=== PATIENT | female | born 1960 | race Two or more races ===

== ENCOUNTER → 2017-02-11 | Outpatient (REF) | payer MEDICARE ==
[~2017-02-11] MED LIST: BENI20TA11; Buspirone; Bystolic; Lovaza; PRAV40TA; Spiriva; ZETI10TA; ZOLO100T; vitamin
[2017-02-11 12:34] LABS: ALBUMIN 3.6 GM/DL (3.2-5.2); ALBUMIN/GLOBULIN RATIO 0.97 (1.00-1.93); ALKALINE PHOSPHATASE 57 U/L (45-117); ALT/SGPT 15 U/L (12-78); ANION GAP 6 MEQ/L (8-16); AST/SGOT 18 U/L (15-37); BILIRUBIN,TOTAL 0.3 MG/DL (0.2-1.0); BLOOD UREA NITROGEN 13 MG/DL (7-18); CALCIUM LEVEL 9.2 MG/DL (8.5-10.1); CARBON DIOXIDE LEVEL 31 MEQ/L (21-32); CHLORIDE LEVEL 103 MEQ/L (98-107); CHOLESTEROL LEVEL 180 MG/DL (<200); CREATININE FOR GFR 0.81 MG/DL (0.55-1.02); FREE T4 1.09 NG/DL (0.76-1.46); GLOMERULAR FILTRATION RATE > 60.0 (>51); GLUCOSE, FASTING 82 MG/DL (70-105); POTASSIUM SERUM 4.7 MEQ/L (3.5-5.1); SODIUM LEVEL 140 MEQ/L (136-145); TOTAL PROTEIN 7.3 GM/DL (6.4-8.2); TRIGLYCERIDES LEVEL 121 MG/DL (<150)
[2017-02-11 12:37] LABS: BASO % 0.3 % (0.0-1.0); EOS # 0.2 K/mm3 (0.0-0.50); EOS % 1.7 % (0.0-3.0); LARGE UNSTAINED CELL # 0.2 K/mm3 (0.0-0.4); LARGE UNSTAINED CELL % 1.7 % (0.0-4.0); LYMPH # 2.9 K/mm3 (1.5-4.5); LYMPH % 26.8 % (24.0-44.0); MEAN CORPUSCULAR HEMOGLOBIN 30.2 pg (27.0-33.0); MEAN CORPUSCULAR VOLUME 88.8 fl (80.0-96.0); MONO # 0.6 K/mm3 (0.0-0.8); MONO % 5.8 % (0.0-5.0); NEUTROPHILS % 63.6 % (36.0-66.0); PLATELET COUNT, AUTOMATED 290 k/mm3 (150-450); RED CELL DISTRIBUTION WIDTH 12.6 % (11.5-14.5); WHITE BLOOD COUNT 10.9 K/mm3 (4.0-10.0)
== END ==
LOC: M SFHCPLAZ 09:06
PROVIDERS: ATTEND Nurse Practitioner Family
DX: G89.4 Chronic pain syndrome (principal); I10 Essential (primary) hypertension; F33.1 Major depressive disorder, recurrent, moderate; Z11.59 Encounter for screening for other viral diseases; Z11.4 Encounter for screening for human immunodeficiency virus [HIV]; E55.9 Vitamin D deficiency, unspecified

== ENCOUNTER → 2017-03-10 | Outpatient (CLI) | payer MEDICAID, MEDICARE ==
--- NOTE | 2017-03-10 12:50 | REP ---
CT of the chest without IV contrast, low-dose lung screening CT: The studies performed without IV contrast. Images are presented at lung windowing only. There are no comparison studies. The following lung nodules are identified: Image 16, right upper lobe, 4 mm. Image 19, right upper lobe, 4 mm. Image 36, left upper lobe, 3 mm. Image 39, right lower lobe, 4 mm. Because of the multiplicity of findings and no prior studies, I would consider this a category 4A screening chest CT and I would recommend a 3-month follow-up low-dose chest screening CT. Signed by Shane Ambrocio MD 03/10/2017 12:41 P
== END ==
LOC: M RAD 11:24
PROVIDERS: ATTEND Nurse Practitioner Family
DX: F17.210 Nicotine dependence, cigarettes, uncomplicated (principal)

== ENCOUNTER → 2017-03-12 | Outpatient (CLI) | payer MEDICARE ==
--- NOTE | 2017-03-23 02:51 | ECWPNPC ---
PATIENT NAME: MYAH SHI : 1960 GENDER: FEMALE VISIT DATE: 03/12/2017 DISCHARGE DATE: 03/12/17 1114 VISIT LOCKED DATE TIME: PHYSICIAN: MARYJANE DUVALL RESOURCE: MARYJANE DUVALL REASON FOR APPOINTMENT 1. BACK AND KNEE PAIN HISTORY OF PRESENT ILLNESS FALL RISK SCREENING: SCREENING :NO FALLS IN THE PAST YEAR 56 YEAR OLD FEMALE PATIENT WITH HISTORY OF CHRONIC LOW BACK K AND KNEE PAIN. PATIENT DESCRIBES THE PAIN BURNING, SHARP, STABBING, AND THROBBING WITH A PAIN SCORE OF 5/10. PATIENT STATES HER PAIN STARTED WHEN SHE FELL ABOUT 5 YEARS AGO. PATIENT WAS RECEIVING PAIN MANAGEMENT CARE IN [place] BUT SHE RECENTLY MOVED TO [place]. MRS. SHI STATES THAT HER PAIN IS INCREASED BY ANY TYPE OF ACTIVITY, RAIN, AND WHEN THE WEATHER IS COLD. CURRENTLY THE PATIENT IS USING METHADONE, OXYCODONE, CELEBREX, AND LYRICA FOR PAIN MANAGEMENT. PATIENT DENIES UNEXPLAINABLE WEIGHT LOSS, FEVER, CHILLS, NEW CHANGES ON HER URINARY OR BOWEL CONTROL. PAIN SCREENING: PATIENT HAS A COMPLAINT OF ACUTE OR CHRONIC PAIN :YES CURRENT MEDICATIONS TAKING LYRICA 150 MG CAPSULE 1 CAPSULE ORALLY TWICE A DAY TAKING PAROXETINE HCL 10 MG TABLET 1 TABLET IN THE MORNING ORALLY ONCE A DAY TAKING VENTOLIN HFA 108 (90 BASE) MCG/ACT AEROSOL SOLUTION 2 PUFFS NEEDED INHALATION EVERY 4 HRS TAKING CELEBREX 200 MG CAPSULE 1 CAPSULE WITH FOOD ORALLY ONCE A DAY TAKING METHADONE HCL 10 MG TABLET 1 TABLET ORALLY TWICE DAILY TAKING OXYCODONE HCL 15 MG TABLET 1 TABLET NEEDED ORALLY THREE TIMES DAILY NEEDED TAKING MULTIVITAL DAILY/OCC TAKING VITAMIN D (ERGOCALCIFEROL) 56033 UNIT CAPSULE 1 CAPSULE ORALLY WEEKLY TAKING BYSTOLIC 10 MG TABLET 1 TABLET ORALLY ONCE A DAY TAKING CHANTIX STARTING MONTH JON 0.5 MG X 11 & 1 MG X 42 TABLET DIRECTED ORALLY DAILY, NOTES: NONE YET TAKING SPIRIVA HANDIHALER 18 MCG CAPSULE 1 CAPSULE INHALATION ONCE A DAY TAKING PREDNISONE 10 MG TABLET 1 TABLET ORALLY ONCE A DAY, NOTES: X 6 DAYS TAKING PAXIL 10 MG TABLET 1 TABLET IN THE MORNING ORALLY ONCE A DAY NOT-TAKING BACTRIM DS 800-160 MG TABLET 1 TABLET ORALLY BID MEDICATION LIST REVIEWED AND RECONCILED WITH THE PATIENT PAST MEDICAL HISTORY CHRONIC PAIN SYNDROME DESPRESSION HTN LS SPINE WITH BULGING DISC DISEASE ASCVD RISK SCORE 11% COPD ALLERGIES N.K.D.A. SURGICAL HISTORY TUBAL LIGATION 2000 COLONOSCOPY 2014 FAMILY HISTORY FATHER: , ALCOHOLIC CIRRHOSIS MOTHER: ALIVE 91 YRS, HTN, HYPERLIPIDEMIA, DIAGNOSED WITH HYPERTENSION SIBLINGS: MOST SIBS WITH HTN 5 BROTHER(S) , 6 SISTER(S) . 3 SON(S) , 3 DAUGHTER(S) - HEALTHY. FATHER OF CIRRHOSIS OF LIVER FROM ETOH. SOCIAL HISTORY GENERAL: TOBACCO USE ARE YOU A:CURRENT SMOKER ARE YOU INTERESTED IN QUITTING?THINKING ABOUT QUITTING PREVIOUS QUIT ATTEMPTS?YES, MORE THAN 6 MONTHS AGO. COUNSELED THE PATIENT ON SMOKING CESSATION, EDUCATION HSDTOSLD49/13/2017 HOW MANY CIGARETTES A DAY DO YOU SMOKE?11-20 HOW SOON AFTER YOU WAKE UP DO YOU SMOKE YOUR FIRST CIGARETTE?WITHIN 5 MIN HOW OFTEN DO YOU SMOKE CIGARETTES?EVERY DAY PATIENT COUNSELED ON THE DANGERS OF TOBACCO USE AND URGED TO QUIT:03/12/2017 LUNG CANCER SCREENING SMOKING STATUS:CURRENT SMOKER IS THE PATIENT BETWEEN THE AGE OF 56 AND 78?YES HAS THE PATIENT EVER BEEN DIAGNOSED WITH LUNG CANCER?NO PACK YEARS = NUMBER OF PACKS PER DAY SMOKED X NUMBER OF YEARS SMOKED:40 CREATE REFERRAL:GENERATE AND CREATE REFERRAL TO THE ONCOLOGY NURSE NAVIGATOR (S[facility]) LISTING USING THE LDCT SCAN PROCEDURE ALCOHOL SCREENING POINTS0 INTERPRETATIONNEGATIVE RECREATIONAL DRUG USE DRUG USE?NO CAFFEINE CAFFEINE USE?YES 2-3 CUPS COFFEE DAILY, DRINKS ICED TEA ALL DAY LONG SEXUAL HX HAD SEX IN THE LAST 12 MONTHS (VAGINAL, ORAL, OR ANAL)?YES WITHMEN ONLY USE PROTECTION?NO PREVENTION STRATEGIES DISCUSSED:OTHER HAVE YOU EVER HAD AN STD?YES CHLAMYDIA?YES GC?YES SYPHILIS?YES HERPES?NO OTHER?NO HIV / HEP-C SCREENING HIV TEST OFFERED TO PATIENT:YES DATE OFFERED:01/19/2017 TEST ACCEPTED:YES HEP-C TEST OFFERED TO PATIENT:YES DATE OFFERED:01/19/2017 TEST ACCEPTED:YES OCCUPATION: DISABLED. DIET: REGULAR. EXERCISE: NO REGULAR EXERCISE. MARITAL STATUS: ., CURRENTLY ENGAGED. OTHERS AT HOME: [place]. PETS: 1 CAT. ORIENTAL ORTHODOX [id number] CATHOLIC LANGUAGE LANGUAGES SPOKEN:TUNISIAN EDUCATION LEVEL OF EDUCATION:[employer] FINISHED 7TH GRADE LEARNING BARRIERS / SPECIAL NEEDS CHANGE FROM LAST VISIT?NO BARRIERS TO LEARNING?NO HEARING IMPAIRED?NO VISION IMPAIRED?YES :CORRECTIVE LENSES COGNITIVELY IMPAIRED?NO READINESS TO LEARN?YES LEARNING PREFERENCES?NO LEARNING CAPABILITIES PRESENT?YES EMOTIONAL BARRIERS?NO SPECIAL DEVICES?NO CHAIR INSTALLER NEEDED?NO PAIN CLINIC PFS, CLERGY, PUBLIC HEALTH REFERRALS HAS THE PATIENT BEEN EDUCATED REGARDING HIS/HER PLAN OF CARE?YES HAS THE PATIENT BEEN EDUCATED REGARDING PAIN, THE RISK FOR PAIN, THE IMPORTANCE OF EFFECTIVE PAIN MANAGEMENT, AND THE PAIN ASSESSMENT PROCESS?YES ADVANCE DIRECTIVES HEALTH CARE PROXY?NO DO YOU HAVE A DNR?NO LIVING WILL?NO POWER OF CIRCUS HAND?NO HOSPITALIZATION/MAJOR DIAGNOSTIC PROCEDURE CHILDBIRTH ONLY REVIEW OF SYSTEMS REVIEWED BY: PROVIDER: MARYJANE DUVALL MD . CONSTITUTIONAL: ANY CHANGE IN YOUR MEDICAL CONDITION? NO, PT REFERRED TO PAIN CLINIC FOR BILAT KNEE PAIN AND LOW BACK PAIN. PT STATES THIS PAIN STARTED YEARS AGO FROM A FALL WHILE WALKING. PT STATES SHE WAS READING WHILE WALKING AND TRIPPED AND FELL OVER A CURB. SINCE THEN THE PAIN HAS GOTTEN WORSE OVER THE YEARS. PT STATES SHE GOES TO PT, WHICH MAKES THE PAIN WORSE WITH SWOLLEN KNEE PAIN . CHILLS NO . FEVER NO . INFECTION: DO YOU HAVE NEW INFECTIONS? YES, PT C/O URI, PT DENIES ANY TX WITH ABX, PT SUSPECTS A COLD . DO YOU HAVE HISTORY OF MRSA? NO . MUSCULOSKELETAL: ANY NEW PATTERNS OF PAIN OR NUMBNESS? NO . SYTEMIC LUPUS NO . GASTROENTEROLOGY: ANY NEW CHANGE IN BOWEL CONTROL? NO . BARRETTS ESOPHAGUS NO . CIRRHOSIS NO . HEPATITIS NO . LIVER FAILURE NO . ACID REFLUX NO . UNEXPLAINED WEIGHT LOSS NO . GENITOURINARY: ANY NEW CHANGE IN BLADDER CONTROL? NO . IS THERE A CHANCE YOU COULD BE ? NO . HEMATOLOGY/LYMPH: DO YOU TAKE ANY BLOOD THINNERS? (FOR EXAMPLE- COUMADIN, PLAVIX, AGGRENOX, PLATEL, PRADAXA, OR XARELTO) NO . WHEN WAS YOUR LAST DOSE? DATE: TIME: . LOW PLATELET COUNT NO . SICKLE CELL DISEASE NO . VON WILLIEBRANDS NO . FACTOR V LEIDEN NO . THALLASEMIA NO . ANEMIA NO . EASY BRUISING NO . NEUROLOGY: HAVE YOU FALLEN IN THE PAST 6 MONTHS? NO . ANY NEW EXTREMITY NUMBNESS OR WEAKNESS? NO . HEAD INJURY NO . DEMENTIA NO . CEREBRAL PALSY NO . MULTIPLE SCLEROSIS NO . DIZZINESS NO . HEADACHE NO . STROKES NO . VERTIGO NO . CARDIOLOGY: DO YOU HAVE A PACEMAKER OR DEFIBRILLATOR? NO . ANGINA NO . HEART ATTACK NO . HEART SURGERY NO . CONGESTIVE HEART FAILURE/FLUID OVERLOAD NO . CHEST PAIN NO . HIGH BLOOD PRESSURE ON MEDICATION(S) . IRREGULAR HEART BEAT NO . RESPIRATORY: HAVE YOU BEEN SICK IN THE PAST WEEK? YES, URI . FEVER NO . FLU LIKE SYMPTOMS? NO . CPAP NO . BYPAP NO . ASTHMA NO . EMPHYSEMA NO . CHRONIC LUNG DISEASES YES, COPD, PT DENIES WEARING MASK AT HS . SHORTNESS OF BREATH ON EXERTION NO . COUGH NO . SNORING NO . INTEGUMENTARY: DO YOU HAVE ANY RASHES OR OPEN SORES? NO . ALLERGIC/IMMUNO: ARE YOU ALLERGIC TO SHELLFISH OR IV DYE? NO . ANY NEW ALLERGIES? NO . PSYCHIATRIC: DO YOU HAVE THOUGHTS OF HURTING YOURSELF OR SOMEONE ELSE? NO . ARE YOU ABUSED, NEGLECTED, OR IN AN UNSAFE ENVIRONMENT? NO . ENDOCRINOLOGY: ARE YOU DIABETIC? NO . THYROID DISORDER NO . OTHER: DO YOU NEED ANY PRESCRIPTIONS? YES, OXYCODONE, METHADONE, LYRICA . IF YES, PLEASE LIST: ____ . ANY NEW PROBLEMS WITH YOUR MEDICATIONS? NO . WHEN DID YOU LAST EAT? ____ . WHEN DID YOU LAST DRINK? ____ . WHAT DID YOU LAST DRINK? ____ . NAME OF PERSON DRIVING YOU HOME? ____ . DO YOU HAVE ANY OTHER QUESTIONS OR CONCERNS NO, PT STATES [facility] PNEUMONIA VACC[facility] 01/2017, SHINGLES VACCINE 01/2017 . VITAL SIGNS WT 135 LBS, HT 62.5 IN, BMI 24.30 INDEX, BP 147/71 MM HG, HR 75 /MIN, RR 18 /MIN, TEMP 97.6 F, OXYGEN SAT % 93%, NA INITIALS AW 0952, REVIEWED BY: EM. EXAMINATION : PATIENT IS ALERT O X 3 AND COOPERATIVE. TENDERNESS IN THE LOWER BACK AND PARASPINAL MUSCLE GROUP. LEFT LEG IS WEAKER THEN THE RIGHT AT EXTENSION AND FLEXION. TENDERNESS IN BOTH KNEES. ASSESSMENTS MYALGIA - M79.1 (PRIMARY) TREATMENT MYALGIA NOTES: WE DISCUSSED SEVERAL ISSUES WITH MRS. SHI'S PAIN MANAGEMENT CASE. AT THIS TIME I WOULD LIKE TO SPEAK WITH THE PATIENT'S PRIMARY CARE PHYSICIAN ABOUT MEDICATION MANAGEMENT. PATIENT WILL BE REFERRED TO [facility] FOR THE KNEE PAIN WELL A MARINE ENGINEER [facility]. I WOULD LIKE TO GET ALL THE STUDIES SUCH MRI'S THAT SHE HAS HAD IN [place] TO CONSIDER INTERVENTIONS. PATIENT WILL RETURN TO THE CLINIC IN 3 WEEKS. INSTRUCTIONS WERE GIVEN, QUESTIONS WERE ANSWERED, PATIENT REPORTS UNDERSTANDING AND AGREES WITH THE PLAN. I, PURVI PANTOJA, DOCUMENTED THE ABOVE INFORMATION ACTING A SCRIBE FOR DR. DUVALL. I HAVE REVIEWED THE ABOVE DOCUMENT, WRITTEN BY PURVI RAZO AND I VERIFY THAT IT IS ACCURATE. DEAR DR. IBARRA:THANK YOU FOR YOUR KIND REFERRAL OF MRS. SHI. IF YOU WANT TO DISCUSS HER CASE WITH ME PLEASE CALL ME AT THE PAIN CENTER AT [phone]. SINCERELY,MARYJANE DUVALL, [facility]. PROCEDURE CODES FA211 ESTABILISHED PATIENT [facility] FACILITY CHARGE G8427 DOC MEDS VERIFIED W/PT OR RE G8730 PAIN ASSESS POS TOOL F/U PLAN DOC DISPOSITION & COMMUNICATION FOLLOW UP 3 WEEKS ELECTRONICALLY SIGNED BY MARYJANE DUVALL MD ON 03/22/2017 AT 10:52 AM EDT DISCLAIMER : THIS IS A VISIT SUMMARY EXTRACTED FROM THE [employer] CHART. IT IS NOT A COPY OF THE [employer] PROGRESS NOTE. BRUNO
== END ==
LOC: M PAIN 09:30
PROVIDERS: ATTEND Anesthesiology
DX: G89.29 Other chronic pain (principal); M54.5 Low back pain; M25.561 Pain in right knee; M25.562 Pain in left knee; M79.1 Myalgia; F32.9 Major depressive disorder, single episode, unspecified; I10 Essential (primary) hypertension; J44.9 Chronic obstructive pulmonary disease, unspecified; F17.210 Nicotine dependence, cigarettes, uncomplicated; F11.20 Opioid dependence, uncomplicated; Z79.52 Long term (current) use of systemic steroids; Z79.899 Other long term (current) drug therapy

== ENCOUNTER → 2017-04-28 | Outpatient (CLI) | payer MEDICARE, MEDICAID ==
--- NOTE | 2017-04-29 09:20 | REP ---
MR LUMBAR SPINE WITHOUT CONTRAST: HISTORY: Back pain. Decreased signal intensity on T2-weighted images is present in the L4-5 and L5-S1 intervertebral discs. The L3-4 through L5-S1 intervertebral discs are decreased in height. These findings are consistent with disc degeneration. There is no disc bulge or herniation at the L1-2 and L2-3 levels. The nerves exit the neural foramina without compression. A diffuse disc bulge is present at the L3-4 level. There is minimal compression of the thecal sac. There is hypertrophy of the ligamenta flava and posterior articulating facets. The L3 nerves exit the neural foramina without compression. A diffuse disc bulge is present at the L4-5 level. There is minimal compression of the thecal sac. There hypertrophy of the ligamenta flava and posterior articulating facets. There are 4 mm of grade 1 spondylolisthesis of L4 on 5. The L4 nerves exit the neural foramina without compression. A diffuse disc bulge is present at the L5-S1 level. This abuts the thecal sac and S1 nerves. There is hypertrophy of the posterior articulating facets. The L5 nerves exit the neural foramina without compression. The conus medullaris is normal in appearance terminating at the level of the L1-2 intervertebral disc. Normal signal intensity is present in the lumbar vertebral bodies. IMPRESSION: 1. Diffuse disc bulge at the L3-4 level with minimal thecal sac compression. 2. Diffuse disc bulge at the L4-5 level with minimal thecal sac compression. There is grade 1 spondylolisthesis of L4 on 5. 3. Diffuse disc bulge at the L5-S1 level. This abuts the thecal sac and S1 nerves. Signed by Kevin Mary MD 04/29/2017 08:38 A
== END ==
LOC: M RAD 14:54
PROVIDERS: ATTEND Physician Assistant Medical
DX: M54.5 Low back pain (principal)

== ENCOUNTER → 2021-12-19 | Outpatient (CLI) | payer MEDICARE, MEDICAID ==
[2021-12-19 09:39] LABS: HEMATOCRIT 46.3 % (36.0-47.0); HEMOGLOBIN 15.3 g/dl (12.0-15.5); MEAN CORPUSCULAR VOLUME 87.7 fl (80.0-96.0); PLATELET COUNT, AUTOMATED 250 10^3/uL (150-450); RED BLOOD COUNT 5.28 10^6/uL (4.00-5.40); WHITE BLOOD COUNT 10.8 10^3/uL (4.0-10.0)
[2021-12-19 11:20] LABS: ALBUMIN 3.7 GM/DL (3.2-5.2); ALT/SGPT 24 U/L (12-78); BILIRUBIN,TOTAL 0.3 MG/DL (0.2-1.0); BLOOD UREA NITROGEN 16 MG/DL (7-18); CALCIUM LEVEL 9.4 MG/DL (8.8-10.2); CARBON DIOXIDE LEVEL 30 MEQ/L (21-32); CHLORIDE LEVEL 105 MEQ/L (98-107); CREATININE FOR GFR 0.93 MG/DL (0.55-1.30); GLOMERULAR FILTRATION RATE > 60.0 (>45); GLUCOSE, FASTING 79 MG/DL (70-100); POTASSIUM SERUM 4.5 MEQ/L (3.5-5.1); SODIUM LEVEL 139 MEQ/L (136-145)
[2021-12-19 13:08] LABS: HEPATITIS B SURFACE ANTIBODY NEGATIVE (POSITIVE)
[2021-12-19 13:40] LABS: GC DNA AMPLIFICATION NEGATIVE (NEGATIVE)
[2021-12-19 13:42] LABS: HEPATITIS C VIRUS ABY INDEX < 0.0 INDEX (<0.8); HIV 1&2 SCREEN CENTAUR NEGATIVE (NEGATIVE)
[2021-12-19 13:55] LABS: HCG, SERUM QUALITATIVE NEGATIVE (NEGATIVE)
== END ==
LOC: M LAB 08:28
PROVIDERS: ATTEND Family Medicine
DX: F11.20 Opioid dependence, uncomplicated (principal)

== ENCOUNTER → 2022-01-18 | Outpatient (CLI) | payer MEDICARE | LOC: M RAD 12:17 | PROVIDERS: ATTEND Student in an Organized Health Care Education/Training Program | DX: J44.1 Chronic obstructive pulmonary disease with (acute) exacerbation (principal) ==

== ENCOUNTER → 2022-11-24 | Outpatient (CLI) | payer MEDICARE | LOC: M WUC 12:12 | PROVIDERS: ATTEND Physician Assistant | DX: R05.9 Cough, unspecified (principal); J44.1 Chronic obstructive pulmonary disease with (acute) exacerbation; Z72.0 Tobacco use; I70.0 Atherosclerosis of aorta; M48.14 Ankylosing hyperostosis [Forestier], thoracic region ==

== ENCOUNTER 2023-01-29 08:05 | Inpatient (IN) | payer MEDICARE ==
[~2023-01-29] VITALS: Ht 160 cm; Wt 66.9 kg
[~2023-01-29 08:05] MED LIST changes: +ALBU2.5V10 NEB; +NEBU1EAC78 MC; +PRED20TA PO
[2023-01-29] MEDS ORDERED: methylPREDNISolone 125MG 2ML VIAL IV ONE (08:30)
[2023-01-29] MEDS ORDERED: IPRATROPIUM 0.5MG/ALBUTEROL 2.5MG INH SOL UD 3ML (DUONEB) NEB PRN (08:30)
[2023-01-29 09:20] LABS: BASO % 0.1 % (0.0-1.0); EOS % 0.1 % (0.0-3.0); HEMATOCRIT 47.2 % (36.0-47.0); HEMOGLOBIN 15.9 g/dl (12.0-15.5); LYMPH % 8.2 % (24.0-44.0); MEAN CORPUSCULAR HEMOGLOBIN 29.9 pg (27.0-33.0); MEAN CORPUSCULAR HGB CONC 33.7 g/dl (32.0-36.5); MEAN CORPUSCULAR VOLUME 88.7 fl (80.0-96.0); MONO # 0.6 10^3/uL (0.0-0.8); MONO % 4.5 % (2.0-8.0); NEUTROPHILS # 10.6 10^3/uL (1.5-8.5); NEUTROPHILS % 86.6 % (36.0-66.0); PLATELET COUNT, AUTOMATED 356 10^3/uL (150-450); RED BLOOD COUNT 5.32 10^6/uL (4.00-5.40); WHITE BLOOD COUNT 12.3 10^3/uL (4.0-10.0)
[2023-01-29 09:37] LABS: INR 1.03; PROTHROMBIN TIME 13.2 SECONDS (12.5-14.5)
[2023-01-29] MEDS ORDERED: ISOVUE-370 76% 100ML VIAL As Ordered ONE (09:52)
[2023-01-29 10:30] LABS: VENOUS BASE EXCESS 0.2 (-2.0-2.0); VENOUS HCO3 25.7 MMOL/L (23.0-27.0); VENOUS O2 SATURATION 91.9 % (60.0-80.0); VENOUS PARTIAL PRESSURE CO2 44.8 mmHg (38.0-50.0); VENOUS PARTIAL PRESSURE O2 61.6 mmHg (30.0-50.0); VENOUS PH 7.377 UNITS (7.330-7.430); VENOUS STANDARD HCO3 24.5 MMOL/L; VENOUS TOTAL CO2 27.1 MMOL/L (24.0-28.0)
[2023-01-29 11:05] LABS: CPK CREATINE PHOSPHOKINASE 46 U/L (34-145)
[2023-01-29 11:16] LABS: ALBUMIN 3.5 G/DL (3.2-5.2); ALKALINE PHOSPHATASE 52 U/L (46-116); ALT/SGPT 21 U/L (7.0-40); AST/SGOT 23 U/L (<34); BILIRUBIN,DIRECT 0.2 MG/DL (<0.4); BILIRUBIN,TOTAL 0.4 MG/DL (0.3-1.2); BLOOD UREA NITROGEN 22 MG/DL (9-23); CALCIUM LEVEL 9.3 MG/DL (8.3-10.6); CARBON DIOXIDE LEVEL 27 MMOL/L (20-31); CHLORIDE LEVEL 108 MMOL/L (98-107); CK-MB VALUE MASS 1.9 NG/ML (<3.6); CREATININE FOR GFR 0.81 MG/DL (0.55-1.30); GLOMERULAR FILTRATION RATE > 60.0 (>45); GLUCOSE, FASTING 109 MG/DL (74-106); MB/CK RELATIVE INDEX 4.13 (< OR =4); SODIUM LEVEL 142 MMOL/L (136-145); THYROID STIMULATING HORMONE 1.748 uIU/ML (0.55-4.78); THYROXINE (T4) 10.6 UG/DL (4.5-10.9); TOTAL PROTEIN 6.6 G/DL (5.7-8.2)
[2023-01-29] MEDS ORDERED: MED REC IN PROGRESS XX SCH (11:35)
[2023-01-29] MEDS ORDERED: NEBI20TA2 PO (12:51)
[2023-01-29] MEDS ORDERED: ANOR1AER INH (12:51)
[2023-01-29] MEDS ORDERED: CITA10TA7 PO (12:51)
[2023-01-29] MEDS ORDERED: IPRA0.00 INH (12:51)
[2023-01-29] MEDS ORDERED: ROFL500T PO (12:51)
[2023-01-29] MEDS ORDERED: IBUP80TA PO (12:51)
[2023-01-29] MEDS ORDERED: EZET10TA21 PO (12:51)
[2023-01-29] MEDS ORDERED: TREL1AER INH (12:51)
[2023-01-29] MEDS ORDERED: METH5TA PO (12:51)
[2023-01-29] MEDS ORDERED: PREG150C2 PO (12:51)
[2023-01-29] MEDS ORDERED: ALBU8.5H INH (12:51)
[2023-01-29] MEDS ORDERED: ALBU2.5V10 INH (12:51)
[2023-01-29] MEDS ORDERED: HOME MED LIST COMPLETE! XX SCH (12:55)
[2023-01-29 13:27] LABS: CPK CREATINE PHOSPHOKINASE 50 U/L (34-145)
[2023-01-29] MEDS ORDERED: GABAPENTIN 300 MG CAP PO ONE (13:30)
[2023-01-29] MEDS: ENOXAPARIN 40MG/0.4ML SYRINGE (J1650 PER 10MG) SC SCH (14:50)
[2023-01-29 14:54] LABS: PROCALCITONIN <0.04 ng/ml
[2023-01-29] MEDS ORDERED: AZITHROMYCIN INJ 500 MG, VIAL MATE ADAPTER 1 EACH in NS 250 ML IV SCH (14:55)
[2023-01-29] MEDS ORDERED: LEVALBUTEROL 1.25MG 0.5ML CONCENTRATE NEB INH PRN ×2 (14:55→15:05)
[2023-01-29] MEDS ORDERED: IPRATROPIUM 0.02% SOLN 0.5MG 2.5ML NEB INH PRN (14:55)
[2023-01-29] MEDS ORDERED: **hydrALAZINE HCL** 25 MG TAB PO PRN (15:00)
[2023-01-29] MEDS: IPRATROPIUM 0.02% SOLN 0.5MG 2.5ML NEB INH SCH ×3 (16:41→23:46)
[2023-01-29] MEDS: LEVALBUTEROL 1.25MG 0.5ML CONCENTRATE NEB INH SCH ×3 (16:42→23:46)
[2023-01-29] MEDS: NEBIVOLOL 5 MG TAB (BYSTOLIC) PO SCH (17:30)
[2023-01-29] MEDS: CitaloPRAM (CeleXA) 10 MG TABLET PO SCH (17:30)
[2023-01-29] MEDS: EZETIMIBE 10MG TABLET (ZETIA) PO SCH (17:31)
[2023-01-29] MEDS: LOSARTAN 25 MG TAB PO SCH (17:31)
[2023-01-29] MEDS: NICOTINE 14 MG/24 HR TRANSDERMAL TD SCH (17:32)
[2023-01-29] MEDS: AZITHROMYCIN 250MG TABLET PO SCH (18:06)
[2023-01-29 20:47] VITALS: BP 161/81; TEMP 98.3; O2SAT 95
[2023-01-29] MEDS ORDERED: predniSONE 20 MG TAB PO SCH (21:00)
[2023-01-29] MEDS: SYMBICORT 160/4.5MCG INHALER 6GM INH SCH (21:00)
[2023-01-29] MEDS: CAPSAICIN 0.025% CR 60 GM TOP SCH (21:00)
[2023-01-29] MEDS: methylPREDNISolone 40MG 1ML VIAL IV SCH (21:32)
[2023-01-29] MEDS: PREGABALIN 75 MG CAP(LYRICA) PO SCH (21:33)
[2023-01-30] VITALS (24 sets, daily range): BP systolic 135–148; BP diastolic 62–72; TEMP 96.9–98.3; O2SAT 88–99
[2023-01-30] MEDS: LEVALBUTEROL 1.25MG 0.5ML CONCENTRATE NEB INH SCH ×6 (03:10→23:46)
[2023-01-30] MEDS: IPRATROPIUM 0.02% SOLN 0.5MG 2.5ML NEB INH SCH ×6 (03:10→23:46)
[2023-01-30 06:11] LABS: HEMATOCRIT 46.8 % (36.0-47.0); HEMOGLOBIN 15.3 g/dl (12.0-15.5); MEAN CORPUSCULAR HEMOGLOBIN 29.3 pg (27.0-33.0); MEAN CORPUSCULAR HGB CONC 32.7 g/dl (32.0-36.5); MEAN CORPUSCULAR VOLUME 89.7 fl (80.0-96.0); PLATELET COUNT, AUTOMATED 386 10^3/uL (150-450); RED BLOOD COUNT 5.22 10^6/uL (4.00-5.40); WHITE BLOOD COUNT 15.1 10^3/uL (4.0-10.0)
[2023-01-30 06:42] LABS: BLOOD UREA NITROGEN 25 MG/DL (9-23); CALCIUM LEVEL 9.8 MG/DL (8.3-10.6); CARBON DIOXIDE LEVEL 27 MMOL/L (20-31); CHLORIDE LEVEL 105 MMOL/L (98-107); CREATININE FOR GFR 0.89 MG/DL (0.55-1.30); GLOMERULAR FILTRATION RATE > 60.0 (>45); GLUCOSE, FASTING 118 MG/DL (74-106); SODIUM LEVEL 143 MMOL/L (136-145)
[2023-01-30] MEDS: TIOTROPIUM INHALER/CAPSULE (SPIRIVA) INH SCH (07:13)
[2023-01-30] MEDS: SYMBICORT 160/4.5MCG INHALER 6GM INH SCH ×2 (07:13→19:09)
[2023-01-30] MEDS ORDERED: ROFLUMILAST 500 MCG TABLET (PATIENT'S OWN MED) PO SCH (09:00)
[2023-01-30] MEDS: ENOXAPARIN 40MG/0.4ML SYRINGE (J1650 PER 10MG) SC SCH (09:00)
[2023-01-30] MEDS: NICOTINE 14 MG/24 HR TRANSDERMAL TD SCH (09:00)
[2023-01-30] MEDS: CAPSAICIN 0.025% CR 60 GM TOP SCH ×2 (09:34→20:05)
[2023-01-30] MEDS: methylPREDNISolone 40MG 1ML VIAL IV SCH ×2 (09:34→20:05)
[2023-01-30] MEDS: NEBIVOLOL 5 MG TAB (BYSTOLIC) PO SCH (09:35)
[2023-01-30] MEDS: METHADONE 10MG TAB PO SCH (09:35)
[2023-01-30] MEDS: LOSARTAN 25 MG TAB PO SCH (09:35)
[2023-01-30] MEDS: EZETIMIBE 10MG TABLET (ZETIA) PO SCH (09:35)
[2023-01-30] MEDS: PREGABALIN 75 MG CAP(LYRICA) PO SCH ×2 (09:36→20:05)
[2023-01-30] MEDS: CitaloPRAM (CeleXA) 10 MG TABLET PO SCH (09:36)
[2023-01-30] MEDS: AZITHROMYCIN 250MG TABLET PO SCH (17:23)
[2023-01-30] MEDS ORDERED: ALPRAZolam 0.25 MG TAB PO ONE (22:05)
[2023-01-31] VITALS (13 sets, daily range): BP systolic 127–142; BP diastolic 58–66; TEMP 97–98.3; O2SAT 90–100
[2023-01-31] MEDS: UNRESOLVED PATIENT OWN MED ORDER XX SCH (00:01)
[2023-01-31] MEDS: LEVALBUTEROL 1.25MG 0.5ML CONCENTRATE NEB INH SCH ×2 (03:04→06:56)
[2023-01-31] MEDS: IPRATROPIUM 0.02% SOLN 0.5MG 2.5ML NEB INH SCH ×2 (03:04→06:56)
[2023-01-31] MEDS: TIOTROPIUM INHALER/CAPSULE (SPIRIVA) INH SCH (06:55)
[2023-01-31] MEDS: SYMBICORT 160/4.5MCG INHALER 6GM INH SCH (06:56)
[2023-01-31 07:06] LABS: BASO % 0.1 % (0.0-1.0); HEMATOCRIT 45.5 % (36.0-47.0); HEMOGLOBIN 14.9 g/dl (12.0-15.5); LYMPH # 1.8 10^3/uL (1.5-5.0); LYMPH % 16.9 % (24.0-44.0); MEAN CORPUSCULAR HEMOGLOBIN 30.3 pg (27.0-33.0); MEAN CORPUSCULAR HGB CONC 32.7 g/dl (32.0-36.5); MEAN CORPUSCULAR VOLUME 92.5 fl (80.0-96.0); MONO # 0.8 10^3/uL (0.0-0.8); MONO % 7.5 % (2.0-8.0); NEUTROPHILS # 8.1 10^3/uL (1.5-8.5); NEUTROPHILS % 74.7 % (36.0-66.0); PLATELET COUNT, AUTOMATED 309 10^3/uL (150-450); RED BLOOD COUNT 4.92 10^6/uL (4.00-5.40); WHITE BLOOD COUNT 10.8 10^3/uL (4.0-10.0)
[2023-01-31 07:21] LABS: BLOOD UREA NITROGEN 23 MG/DL (9-23); CALCIUM LEVEL 9.6 MG/DL (8.3-10.6); CARBON DIOXIDE LEVEL 30 MMOL/L (20-31); CHLORIDE LEVEL 105 MMOL/L (98-107); CREATININE FOR GFR 0.89 MG/DL (0.55-1.30); GLOMERULAR FILTRATION RATE > 60.0 (>45); GLUCOSE, FASTING 115 MG/DL (74-106); POTASSIUM SERUM 4.7 MMOL/L (3.5-5.1); SODIUM LEVEL 141 MMOL/L (136-145)
[2023-01-31] MEDS: FORMOTEROL FUMARATE 20 MCG/2 ML INHALATION SOLUTION (PERFOROMIST) INH SCH ×2 (08:00→19:22)
[2023-01-31] MEDS: BUDESONIDE 0.5 MG/2 ML INHALATION SUSPENSION INH SCH ×2 (08:00→19:22)
[2023-01-31] MEDS ORDERED: IPRATROPIUM 0.5MG/ALBUTEROL 2.5MG INH SOL UD 3ML (DUONEB) NEB PRN (08:10)
[2023-01-31] MEDS: NICOTINE 14 MG/24 HR TRANSDERMAL TD SCH (09:00)
[2023-01-31] MEDS: ENOXAPARIN 40MG/0.4ML SYRINGE (J1650 PER 10MG) SC SCH (09:00)
[2023-01-31] MEDS: NEBIVOLOL 5 MG TAB (BYSTOLIC) PO SCH (09:20)
[2023-01-31] MEDS: EZETIMIBE 10MG TABLET (ZETIA) PO SCH (09:21)
[2023-01-31] MEDS: PREGABALIN 75 MG CAP(LYRICA) PO SCH ×2 (09:21→20:15)
[2023-01-31] MEDS: CitaloPRAM (CeleXA) 10 MG TABLET PO SCH (09:21)
[2023-01-31] MEDS: LOSARTAN 25 MG TAB PO SCH (09:22)
[2023-01-31] MEDS: METHADONE 10MG TAB PO SCH (09:22)
[2023-01-31] MEDS: methylPREDNISolone 40MG 1ML VIAL IV SCH ×2 (09:22→20:15)
[2023-01-31] MEDS: CAPSAICIN 0.025% CR 60 GM TOP SCH ×2 (09:23→20:16)
[2023-01-31] MEDS: ALPRAZolam 0.25 MG TAB PO PRN (15:03)
[2023-01-31] MEDS: AZITHROMYCIN 250MG TABLET PO SCH (15:03)
[2023-02-01] VITALS (7 sets, daily range): BP systolic 140–200; BP diastolic 78–102; TEMP 96.5–97.8; O2SAT 91–99
[2023-02-01] MEDS: UNRESOLVED PATIENT OWN MED ORDER XX SCH (00:01)
[2023-02-01 05:49] LABS: BASO % 0.3 % (0.0-1.0); HEMATOCRIT 46.4 % (36.0-47.0); HEMOGLOBIN 15.3 g/dl (12.0-15.5); LYMPH # 2.1 10^3/uL (1.5-5.0); LYMPH % 17.3 % (24.0-44.0); MEAN CORPUSCULAR HEMOGLOBIN 29.8 pg (27.0-33.0); MEAN CORPUSCULAR VOLUME 90.4 fl (80.0-96.0); MONO # 1.2 10^3/uL (0.0-0.8); MONO % 9.7 % (2.0-8.0); NEUTROPHILS # 8.7 10^3/uL (1.5-8.5); NEUTROPHILS % 71.2 % (36.0-66.0); PLATELET COUNT, AUTOMATED 330 10^3/uL (150-450); RED BLOOD COUNT 5.13 10^6/uL (4.00-5.40); WHITE BLOOD COUNT 12.2 10^3/uL (4.0-10.0)
[2023-02-01 06:18] LABS: BLOOD UREA NITROGEN 20 MG/DL (9-23); CALCIUM LEVEL 9.9 MG/DL (8.3-10.6); CARBON DIOXIDE LEVEL 31 MMOL/L (20-31); CHLORIDE LEVEL 103 MMOL/L (98-107); CREATININE FOR GFR 0.82 MG/DL (0.55-1.30); GLOMERULAR FILTRATION RATE > 60.0 (>45); GLUCOSE, FASTING 108 MG/DL (74-106); POTASSIUM SERUM 5.7 MMOL/L (3.5-5.1); SODIUM LEVEL 140 MMOL/L (136-145)
[2023-02-01] MEDS: TIOTROPIUM INHALER/CAPSULE (SPIRIVA) INH SCH (07:17)
[2023-02-01] MEDS: FORMOTEROL FUMARATE 20 MCG/2 ML INHALATION SOLUTION (PERFOROMIST) INH SCH ×2 (07:17→19:11)
[2023-02-01] MEDS: BUDESONIDE 0.5 MG/2 ML INHALATION SUSPENSION INH SCH ×2 (07:17→19:11)
[2023-02-01] MEDS ORDERED: PATIROMER SORBITEX CALCIUM 8.4 GM POWDER PACKET (VELTASSA) PO ONE (08:00)
[2023-02-01] MEDS ORDERED: hydrALAZINE 20MG/ML 1ML VIAL IV ONE (08:30)
[2023-02-01] MEDS: methylPREDNISolone 40MG 1ML VIAL IV SCH ×2 (08:42→20:20)
[2023-02-01] MEDS: ENOXAPARIN 40MG/0.4ML SYRINGE (J1650 PER 10MG) SC SCH ×2 (08:42→08:53)
[2023-02-01] MEDS: EZETIMIBE 10MG TABLET (ZETIA) PO SCH ×2 (08:43→09:00)
[2023-02-01] MEDS: NEBIVOLOL 5 MG TAB (BYSTOLIC) PO SCH (08:43)
[2023-02-01] MEDS: ALPRAZolam 0.25 MG TAB PO PRN ×2 (08:44→19:02)
[2023-02-01] MEDS: PREGABALIN 75 MG CAP(LYRICA) PO SCH ×2 (08:44→20:20)
[2023-02-01] MEDS: METHADONE 10MG TAB PO SCH (08:45)
[2023-02-01] MEDS: NICOTINE 14 MG/24 HR TRANSDERMAL TD SCH (08:46)
[2023-02-01] MEDS: CAPSAICIN 0.025% CR 60 GM TOP SCH ×3 (08:46→20:22)
[2023-02-01] MEDS ORDERED: amLODIPine 5 MG TAB PO SCH (09:00)
[2023-02-01] MEDS ORDERED: METHADONE 5MG TAB PO STA (09:03)
[2023-02-01] MEDS: CitaloPRAM (CeleXA) 20 MG TAB PO SCH (09:59)
[2023-02-01] MEDS: IPRATROPIUM 0.5MG/ALBUTEROL 2.5MG INH SOL UD 3ML (DUONEB) NEB SCH ×4 (11:07→22:58)
[2023-02-01] MEDS: **hydrALAZINE** 50 MG TAB PO SCH (19:58)
[2023-02-02] VITALS (10 sets, daily range): BP systolic 130–212; BP diastolic 60–112; TEMP 97.5–98.1; O2SAT 94–99
[2023-02-02] MEDS: UNRESOLVED PATIENT OWN MED ORDER XX SCH (00:01)
[2023-02-02] MEDS: IPRATROPIUM 0.5MG/ALBUTEROL 2.5MG INH SOL UD 3ML (DUONEB) NEB SCH ×5 (03:09→19:46)
[2023-02-02] MEDS: **hydrALAZINE** 50 MG TAB PO SCH ×4 (04:53→22:00)
[2023-02-02 07:04] LABS: HEMATOCRIT 50.1 % (36.0-47.0); HEMOGLOBIN 16.6 g/dl (12.0-15.5); MEAN CORPUSCULAR HEMOGLOBIN 29.5 pg (27.0-33.0); MEAN CORPUSCULAR HGB CONC 33.1 g/dl (32.0-36.5); MEAN CORPUSCULAR VOLUME 89.1 fl (80.0-96.0); PLATELET COUNT, AUTOMATED 394 10^3/uL (150-450); RED BLOOD COUNT 5.62 10^6/uL (4.00-5.40); WHITE BLOOD COUNT 14.5 10^3/uL (4.0-10.0)
[2023-02-02 07:36] LABS: BLOOD UREA NITROGEN 20 MG/DL (9-23); CALCIUM LEVEL 9.8 MG/DL (8.3-10.6); CARBON DIOXIDE LEVEL 31 MMOL/L (20-31); CHLORIDE LEVEL 102 MMOL/L (98-107); CREATININE FOR GFR 0.86 MG/DL (0.55-1.30); GLOMERULAR FILTRATION RATE > 60.0 (>45); GLUCOSE, FASTING 108 MG/DL (74-106); POTASSIUM SERUM 4.4 MMOL/L (3.5-5.1); SODIUM LEVEL 139 MMOL/L (136-145)
[2023-02-02] MEDS ORDERED: LOSARTAN 25 MG TAB PO SCH (07:45)
[2023-02-02] MEDS: FORMOTEROL FUMARATE 20 MCG/2 ML INHALATION SOLUTION (PERFOROMIST) INH SCH ×2 (08:09→19:24)
[2023-02-02] MEDS: TIOTROPIUM INHALER/CAPSULE (SPIRIVA) INH SCH (08:10)
[2023-02-02] MEDS: BUDESONIDE 0.5 MG/2 ML INHALATION SUSPENSION INH SCH ×2 (08:57→19:24)
[2023-02-02] MEDS: CAPSAICIN 0.025% CR 60 GM TOP SCH ×2 (09:00→20:14)
[2023-02-02] MEDS: NICOTINE 14 MG/24 HR TRANSDERMAL TD SCH (09:00)
[2023-02-02] MEDS ORDERED: hydroCHLOROthiazide 12.5 MG CAPSULE PO SCH (09:00)
[2023-02-02] MEDS: ENOXAPARIN 40MG/0.4ML SYRINGE (J1650 PER 10MG) SC SCH (09:05)
[2023-02-02] MEDS: METHADONE 10MG TAB PO SCH (09:06)
[2023-02-02] MEDS: CitaloPRAM (CeleXA) 20 MG TAB PO SCH (09:07)
[2023-02-02] MEDS: predniSONE 20 MG TAB PO SCH (09:09)
[2023-02-02] MEDS: PREGABALIN 75 MG CAP(LYRICA) PO SCH ×2 (09:09→20:12)
[2023-02-02] MEDS: NEBIVOLOL 5 MG TAB (BYSTOLIC) PO SCH (09:09)
[2023-02-02] MEDS: EZETIMIBE 10MG TABLET (ZETIA) PO SCH (09:14)
[2023-02-02] MEDS: ALPRAZolam 0.25 MG TAB PO PRN (09:55)
[2023-02-03] MEDS: UNRESOLVED PATIENT OWN MED ORDER XX SCH (00:01)
[2023-02-03] MEDS: IPRATROPIUM 0.5MG/ALBUTEROL 2.5MG INH SOL UD 3ML (DUONEB) NEB SCH ×7 (01:11→23:56)
[2023-02-03 05:20] VITALS: BP 128/58; TEMP 96.9; O2SAT 96
[2023-02-03] MEDS: **hydrALAZINE** 50 MG TAB PO SCH ×3 (05:36→21:28)
[2023-02-03 06:10] LABS: HEMATOCRIT 51.3 % (36.0-47.0); HEMOGLOBIN 16.8 g/dl (12.0-15.5); MEAN CORPUSCULAR HEMOGLOBIN 29.7 pg (27.0-33.0); MEAN CORPUSCULAR HGB CONC 32.7 g/dl (32.0-36.5); MEAN CORPUSCULAR VOLUME 90.8 fl (80.0-96.0); PLATELET COUNT, AUTOMATED 409 10^3/uL (150-450); RED BLOOD COUNT 5.65 10^6/uL (4.00-5.40); WHITE BLOOD COUNT 18.5 10^3/uL (4.0-10.0)
[2023-02-03 06:41] LABS: BLOOD UREA NITROGEN 25 MG/DL (9-23); CALCIUM LEVEL 9.8 MG/DL (8.3-10.6); CARBON DIOXIDE LEVEL 35 MMOL/L (20-31); CHLORIDE LEVEL 98 MMOL/L (98-107); CREATININE FOR GFR 1.31 MG/DL (0.55-1.30); GLOMERULAR FILTRATION RATE 43.9 (>45); GLUCOSE, FASTING 79 MG/DL (74-106); POTASSIUM SERUM 3.9 MMOL/L (3.5-5.1); SODIUM LEVEL 138 MMOL/L (136-145)
[2023-02-03] MEDS: FORMOTEROL FUMARATE 20 MCG/2 ML INHALATION SOLUTION (PERFOROMIST) INH SCH ×2 (07:07→20:44)
[2023-02-03] MEDS: TIOTROPIUM INHALER/CAPSULE (SPIRIVA) INH SCH (07:07)
[2023-02-03] MEDS: BUDESONIDE 0.5 MG/2 ML INHALATION SUSPENSION INH SCH ×2 (08:30→20:44)
[2023-02-03 08:45] LABS: PROCALCITONIN <0.04 ng/ml
[2023-02-03] MEDS: CAPSAICIN 0.025% CR 60 GM TOP SCH ×2 (09:00→21:30)
[2023-02-03] MEDS: NICOTINE 14 MG/24 HR TRANSDERMAL TD SCH (09:00)
[2023-02-03] MEDS: ENOXAPARIN 40MG/0.4ML SYRINGE (J1650 PER 10MG) SC SCH (09:00)
[2023-02-03] MEDS ORDERED: DOCUSATE SODIUM 100MG CAPSULE PO SCH (09:00)
[2023-02-03] MEDS: NEBIVOLOL 5 MG TAB (BYSTOLIC) PO SCH (09:00)
[2023-02-03] MEDS: CitaloPRAM (CeleXA) 20 MG TAB PO SCH (09:39)
[2023-02-03] MEDS: predniSONE 20 MG TAB PO SCH (09:39)
[2023-02-03] MEDS: PREGABALIN 75 MG CAP(LYRICA) PO SCH ×2 (09:40→21:28)
[2023-02-03] MEDS: MIRALAX *UNIT DOSE* 17GM PACKET PO SCH (09:40)
[2023-02-03] MEDS: METHADONE 10MG TAB PO SCH (09:40)
[2023-02-03] MEDS: SENOKOT S TAB PO SCH ×2 (09:41→21:28)
[2023-02-03] MEDS: EZETIMIBE 10MG TABLET (ZETIA) PO SCH (09:41)
[2023-02-03] MEDS: NS 1,000 ML IV SCH ×2 (10:13→18:20)
[2023-02-03] MEDS: ALPRAZolam 0.25 MG TAB PO PRN ×2 (10:14→21:27)
[2023-02-03 13:00] VITALS: BP 105/70
[2023-02-03 14:10] VITALS: BP 109/68; TEMP 97.7; O2SAT 96
[2023-02-03 22:33] VITALS: BP 119/64; TEMP 98.7; O2SAT 96
[2023-02-04] MEDS: UNRESOLVED PATIENT OWN MED ORDER XX SCH (00:01)
[2023-02-04] MEDS: IPRATROPIUM 0.5MG/ALBUTEROL 2.5MG INH SOL UD 3ML (DUONEB) NEB SCH ×5 (04:00→14:14)
[2023-02-04] MEDS: **hydrALAZINE** 50 MG TAB PO SCH ×2 (05:41→13:20)
[2023-02-04 06:18] LABS: HEMATOCRIT 45.3 % (36.0-47.0); HEMOGLOBIN 15.1 g/dl (12.0-15.5); MEAN CORPUSCULAR HEMOGLOBIN 29.8 pg (27.0-33.0); MEAN CORPUSCULAR HGB CONC 33.3 g/dl (32.0-36.5); MEAN CORPUSCULAR VOLUME 89.5 fl (80.0-96.0); PLATELET COUNT, AUTOMATED 345 10^3/uL (150-450); RED BLOOD COUNT 5.06 10^6/uL (4.00-5.40)
[2023-02-04 06:50] LABS: BLOOD UREA NITROGEN 16 MG/DL (9-23); CALCIUM LEVEL 9.2 MG/DL (8.3-10.6); CARBON DIOXIDE LEVEL 32 MMOL/L (20-31); CHLORIDE LEVEL 104 MMOL/L (98-107); CREATININE FOR GFR 0.92 MG/DL (0.55-1.30); GLOMERULAR FILTRATION RATE > 60.0 (>45); GLUCOSE, FASTING 78 MG/DL (74-106); POTASSIUM SERUM 3.8 MMOL/L (3.5-5.1); SODIUM LEVEL 140 MMOL/L (136-145)
[2023-02-04 07:10] VITALS: BP 126/72; TEMP 97.6; O2SAT 96
[2023-02-04] MEDS: BUDESONIDE 0.5 MG/2 ML INHALATION SUSPENSION INH SCH (08:00)
[2023-02-04] MEDS: TIOTROPIUM INHALER/CAPSULE (SPIRIVA) INH SCH (08:00)
[2023-02-04] MEDS: FORMOTEROL FUMARATE 20 MCG/2 ML INHALATION SOLUTION (PERFOROMIST) INH SCH (08:00)
[2023-02-04] MEDS ORDERED: LACTULOSE 20GM/30ML SYRUP UDC PO STA (08:45)
[2023-02-04] MEDS: ENOXAPARIN 40MG/0.4ML SYRINGE (J1650 PER 10MG) SC SCH ×2 (09:00→09:42)
[2023-02-04] MEDS: predniSONE 20 MG TAB PO SCH (09:40)
[2023-02-04] MEDS: NEBIVOLOL 5 MG TAB (BYSTOLIC) PO SCH (09:40)
[2023-02-04] MEDS: EZETIMIBE 10MG TABLET (ZETIA) PO SCH (09:40)
[2023-02-04] MEDS: METHADONE 10MG TAB PO SCH (09:40)
[2023-02-04] MEDS: PREGABALIN 75 MG CAP(LYRICA) PO SCH (09:41)
[2023-02-04] MEDS: SENOKOT S TAB PO SCH (09:41)
[2023-02-04] MEDS: CitaloPRAM (CeleXA) 20 MG TAB PO SCH (09:41)
[2023-02-04] MEDS: MIRALAX *UNIT DOSE* 17GM PACKET PO SCH (09:41)
[2023-02-04] MEDS: ALPRAZolam 0.25 MG TAB PO PRN (09:41)
[2023-02-04] MEDS: CAPSAICIN 0.025% CR 60 GM TOP SCH (09:42)
[2023-02-04] MEDS ORDERED: ROFL500T PO (11:04)
[2023-02-04] MEDS ORDERED: AMLO1TAB25 PO (11:04)
[2023-02-04] MEDS ORDERED: ALBU8.5H INH (11:04)
[2023-02-04] MEDS ORDERED: COLA100C5 PO (11:04)
[2023-02-04] MEDS ORDERED: TREL1AER INH (11:04)
[2023-02-04] MEDS ORDERED: PRED10TA2 PO (11:04)
[2023-02-04] MEDS ORDERED: NEBI20TA2 PO (11:04)
[2023-02-04] MEDS ORDERED: HYDR-3910 PO ×2 (11:04→11:13)
[2023-02-04] MEDS ORDERED: CELE20TA PO (11:04)
[2023-02-04] MEDS ORDERED: EZET10TA21 PO (11:04)
[2023-02-04] MEDS ORDERED: IPRA0.00 INH ×2 (11:04→11:13)
[2023-02-04] MEDS ORDERED: MIRA1POW3 PO (11:04)
[2023-02-04] MEDS ORDERED: DULC10SU2 PR (11:04)
[2023-02-04] MEDS ORDERED: PREG150C2 PO ×2 (11:04→11:13)
[2023-02-04] MEDS ORDERED: ALPR0.25 PO ×2 (11:04→11:13)
[2023-02-04 13:20] VITALS: BP 109/68
== END 2023-02-04 14:30 | disposition home or self-care (01) | DRG 190 ==
LOC: EDBD 08:05 → M ED 08:05 → M ED INP 14:09 → M PCU 20:46 → M MS5PR 02-01 22:15
PROVIDERS: ADMIT Internal Medicine; ATTEND Internal Medicine
DX: J44.1 Chronic obstructive pulmonary disease with (acute) exacerbation (principal); I21.A1 Myocardial infarction type 2; I16.9 Hypertensive crisis, unspecified; B02.29 Other postherpetic nervous system involvement; N17.9 Acute kidney failure, unspecified; I10 Essential (primary) hypertension; F32.A Depression, unspecified; E78.5 Hyperlipidemia, unspecified; D72.829 Elevated white blood cell count, unspecified; F17.210 Nicotine dependence, cigarettes, uncomplicated; F41.9 Anxiety disorder, unspecified; E87.5 Hyperkalemia; G62.9 Polyneuropathy, unspecified; G89.4 Chronic pain syndrome; Z79.899 Other long term (current) drug therapy

== ENCOUNTER 2023-03-06 07:58 | Observation (INO) | payer MEDICARE ==
[~2023-03-06] VITALS: Ht 157.5 cm; Wt 65.7 kg
[~2023-03-06 07:58] MED LIST changes: +ALBU2.5V10 INH; +ALBU8.5H INH; +ALPR0.25 PO; +AMLO1TAB25 PO; +ANOR1AER INH; +CELE20TA PO; +CITA10TA7 PO; +COLA100C5 PO; +DULC10SU2 PR; +EZET10TA21 PO; +HYDR-3910 PO; +IBUP80TA PO; +IPRA0.00 INH; +METH5TA PO; +MIRA1POW3 PO; +NEBI20TA2 PO; +PRED10TA2 PO; +PREG150C2 PO; +ROFL500T PO; +TREL1AER INH
[2023-03-06] MEDS ORDERED: IPRATROPIUM 0.5MG/ALBUTEROL 2.5MG INH SOL UD 3ML (DUONEB) NEB ONE (08:25)
[2023-03-06] MEDS ORDERED: METHADONE 10MG TAB PO ONE (08:25)
[2023-03-06] MEDS ORDERED: ALBUTEROL SULFATE 2.5MG/0.5ML INH NEB SOLN INH ONE (08:25)
[2023-03-06] MEDS ORDERED: PILL CUTTER 1 EACH XX PRN (08:30)
[2023-03-06 08:48] LABS: VENOUS BASE EXCESS 2.6 (-2.0-2.0); VENOUS HCO3 26.3 MMOL/L (23.0-27.0); VENOUS O2 SATURATION 80.1 % (60.0-80.0); VENOUS PARTIAL PRESSURE CO2 37.5 mmHg (38.0-50.0); VENOUS PARTIAL PRESSURE O2 42.9 mmHg (30.0-50.0); VENOUS PH 7.463 UNITS (7.330-7.430); VENOUS STANDARD HCO3 26.3 MMOL/L; VENOUS TOTAL CO2 27.4 MMOL/L (24.0-28.0)
[2023-03-06] MEDS ORDERED: methylPREDNISolone 40MG 1ML VIAL IV ONE (09:00)
[2023-03-06] MEDS: NICOTINE 21MG/24HR 1 EA TRANSDERMAL TD SCH (09:00)
[2023-03-06 09:20] LABS: BASO % 0.2 % (0.0-1.0); HEMATOCRIT 44.1 % (36.0-47.0); LYMPH # 0.5 10^3/uL (1.5-5.0); LYMPH % 3.3 % (24.0-44.0); MEAN CORPUSCULAR HEMOGLOBIN 30.5 pg (27.0-33.0); MEAN CORPUSCULAR VOLUME 89.6 fl (80.0-96.0); MONO # 0.4 10^3/uL (0.0-0.8); MONO % 2.9 % (2.0-8.0); NEUTROPHILS # 13.4 10^3/uL (1.5-8.5); NEUTROPHILS % 91.4 % (36.0-66.0); PLATELET COUNT, AUTOMATED 420 10^3/uL (150-450); RED BLOOD COUNT 4.92 10^6/uL (4.00-5.40); WHITE BLOOD COUNT 14.7 10^3/uL (4.0-10.0)
[2023-03-06 09:23] LABS: INR 1.07; PROTHROMBIN TIME 13.6 SECONDS (12.5-14.5)
[2023-03-06 09:27] LABS: CPK CREATINE PHOSPHOKINASE 56 U/L (34-145)
[2023-03-06 09:28] LABS: ALBUMIN 3.4 G/DL (3.2-5.2); ALKALINE PHOSPHATASE 61 U/L (46-116); ALT/SGPT 27 U/L (7.0-40); AST/SGOT 25 U/L (<34); BILIRUBIN,DIRECT 0.1 MG/DL (<0.4); BILIRUBIN,TOTAL 0.3 MG/DL (0.3-1.2); BLOOD UREA NITROGEN 24 MG/DL (9-23); CALCIUM LEVEL 9.6 MG/DL (8.3-10.6); CARBON DIOXIDE LEVEL 27 MMOL/L (20-31); CHLORIDE LEVEL 110 MMOL/L (98-107); CK-MB VALUE MASS 1.2 NG/ML (<3.6); CREATININE FOR GFR 0.66 MG/DL (0.55-1.30); GLOMERULAR FILTRATION RATE > 60.0 (>45); GLUCOSE, FASTING 107 MG/DL (74-106); MB/CK RELATIVE INDEX 2.14 (< OR =4); POTASSIUM SERUM 3.7 MMOL/L (3.5-5.1); SODIUM LEVEL 144 MMOL/L (136-145); TOTAL PROTEIN 6.6 G/DL (5.7-8.2)
[2023-03-06 09:30] LABS: THYROID STIMULATING HORMONE 0.665 uIU/ML (0.55-4.78)
[2023-03-06 09:40] LABS: PROCALCITONIN 0.05 ng/ml
[2023-03-06 10:46] LABS: CK-MB VALUE MASS 1.2 NG/ML (<3.6)
[2023-03-06 10:52] LABS: MB/CK RELATIVE INDEX 2.44 (< OR =4)
[2023-03-06] MEDS ORDERED: ISOVUE-370 76% 100ML VIAL As Ordered ONE (10:54)
[2023-03-06] MEDS ORDERED: MED REC IN PROGRESS XX SCH (12:35)
[2023-03-06] MEDS ORDERED: AMLO1TAB25 PO (13:26)
[2023-03-06] MEDS ORDERED: LYRI150C PO (13:26)
[2023-03-06] MEDS ORDERED: TREL1AER PO (13:26)
[2023-03-06] MEDS ORDERED: EZET10TA21 PO (13:26)
[2023-03-06] MEDS ORDERED: HYDR-3910 PO (13:26)
[2023-03-06] MEDS ORDERED: DOXY100T PO (13:26)
[2023-03-06] MEDS ORDERED: CITA20TA6 PO (13:26)
[2023-03-06] MEDS ORDERED: BYST20TA2 PO (13:26)
[2023-03-06] MEDS ORDERED: ALPR0.25 PO (13:26)
[2023-03-06] MEDS ORDERED: PRED10PA PO (13:26)
[2023-03-06] MEDS ORDERED: DALI1TAB2 PO (13:26)
[2023-03-06] MEDS ORDERED: VENTAER INH (13:26)
[2023-03-06] MEDS ORDERED: VITMTA PO (13:26)
[2023-03-06] MEDS ORDERED: IPRA0.00 INH (13:26)
[2023-03-06] MEDS ORDERED: MOM 30ML SUSPENSION UDC PO PRN (13:30)
[2023-03-06] MEDS ORDERED: ACETAMINOPHEN TAB 650MG DOSE (2X325MG) PO PRN (13:30)
[2023-03-06] MEDS ORDERED: AZITHROMYCIN INJ 500 MG, VIAL MATE ADAPTER 1 EACH in NS 250 ML IV SCH (13:30)
[2023-03-06] MEDS ORDERED: HOME MED LIST COMPLETE! XX SCH (13:40)
[2023-03-06 15:20] LABS: INR 1.11
[2023-03-06] MEDS ORDERED: **hydrALAZINE HCL** 25 MG TAB PO SCH (16:00)
[2023-03-06] MEDS: COMBIVENT RESPIMAT 100-20MCG INHALER 4GM INH SCH ×2 (16:03→20:44)
[2023-03-06] MEDS ORDERED: ALBUTEROL 90 MCG/ACT 8GM HFA INHALER INH PRN (16:10)
[2023-03-06] MEDS: DOXYCYCLINE HYCLATE 100 MG in D5W MINI-BAG PLUS 100 ML IV SCH (16:22)
[2023-03-06] MEDS: ALPRAZolam 0.25 MG TAB PO PRN (17:09)
[2023-03-06] MEDS: methylPREDNISolone 125MG 2ML VIAL IV SCH (17:09)
[2023-03-06] MEDS: PREGABALIN 75 MG CAP(LYRICA) PO SCH (20:12)
[2023-03-06] MEDS: **hydrALAZINE HCL** 25 MG TAB PO SCH (20:13)
[2023-03-06] MEDS: ADVAIR HFA 45/21MCG INHALER INH SCH (20:44)
[2023-03-06] MEDS: DOCUSATE SODIUM 100MG CAPSULE PO SCH (21:00)
[2023-03-06 23:11] VITALS: BP 151/80; TEMP 98.4; O2SAT 93
[2023-03-06 23:52] VITALS: O2SAT 94
[2023-03-07] VITALS (16 sets, daily range): BP systolic 129–154; BP diastolic 60–83; TEMP 97.7–98.2; O2SAT 88–97
[2023-03-07] MEDS: COMBIVENT RESPIMAT 100-20MCG INHALER 4GM INH SCH ×4 (01:01→19:04)
[2023-03-07] MEDS: DOXYCYCLINE HYCLATE 100 MG in D5W MINI-BAG PLUS 100 ML IV SCH ×2 (04:25→16:22)
[2023-03-07] MEDS: ALPRAZolam 0.25 MG TAB PO PRN ×2 (04:30→16:32)
[2023-03-07 05:48] LABS: HEMOGLOBIN 13.6 g/dl (12.0-15.5); MEAN CORPUSCULAR HGB CONC 33.2 g/dl (32.0-36.5); MEAN CORPUSCULAR VOLUME 90.5 fl (80.0-96.0); PLATELET COUNT, AUTOMATED 380 10^3/uL (150-450); RED BLOOD COUNT 4.53 10^6/uL (4.00-5.40); WHITE BLOOD COUNT 12.8 10^3/uL (4.0-10.0)
[2023-03-07 06:08] LABS: BLOOD UREA NITROGEN 28 MG/DL (9-23); CALCIUM LEVEL 9.6 MG/DL (8.3-10.6); CARBON DIOXIDE LEVEL 29 MMOL/L (20-31); CHLORIDE LEVEL 108 MMOL/L (98-107); CREATININE FOR GFR 0.72 MG/DL (0.55-1.30); GLOMERULAR FILTRATION RATE > 60.0 (>45); GLUCOSE, FASTING 117 MG/DL (74-106); MAGNESIUM LEVEL 2.3 MG/DL (1.8-2.4); SODIUM LEVEL 143 MMOL/L (136-145)
[2023-03-07] MEDS: TIOTROPIUM INHALER/CAPSULE (SPIRIVA) INH SCH (08:10)
[2023-03-07] MEDS: ADVAIR HFA 45/21MCG INHALER INH SCH ×2 (08:10→19:04)
[2023-03-07] MEDS: NICOTINE 21MG/24HR 1 EA TRANSDERMAL TD SCH (09:00)
[2023-03-07] MEDS ORDERED: METHADONE 5MG TAB PO SCH (09:00)
[2023-03-07] MEDS ORDERED: ROFLUMILAST 500 MCG PO SCH (09:00)
[2023-03-07] MEDS: methylPREDNISolone 125MG 2ML VIAL IV SCH ×3 (09:04→16:22)
[2023-03-07] MEDS: RIVAROXABAN 10MG TAB (XARELTO) PO SCH (09:07)
[2023-03-07] MEDS: EZETIMIBE 10MG TABLET (ZETIA) PO SCH (09:07)
[2023-03-07] MEDS: CitaloPRAM (CeleXA) 20 MG TAB PO SCH (09:07)
[2023-03-07] MEDS: **hydrALAZINE HCL** 25 MG TAB PO SCH ×2 (09:07→20:26)
[2023-03-07] MEDS: DOCUSATE SODIUM 100MG CAPSULE PO SCH ×2 (09:07→20:26)
[2023-03-07] MEDS: MULTIVITAMINS/MINERALS THERAP 1 TAB PO SCH (09:07)
[2023-03-07] MEDS: PREGABALIN 75 MG CAP(LYRICA) PO SCH ×2 (09:08→20:26)
[2023-03-07] MEDS: NEBIVOLOL 5 MG TAB (BYSTOLIC) PO SCH (09:08)
[2023-03-07] MEDS: METHADONE 10MG TAB PO SCH (09:59)
[2023-03-07] MEDS: guaiFENesin/CODEINE SYRUP 5 ML UDC PO PRN ×2 (12:05→22:09)
[2023-03-07] MEDS: CALCIUM CARBONATE 500 MG CHEW U/D PO PRN ×2 (13:45→19:10)
[2023-03-08] VITALS (9 sets, daily range): BP systolic 133–166; BP diastolic 67–80; TEMP 97.7–98.1; O2SAT 90–92
[2023-03-08] MEDS: COMBIVENT RESPIMAT 100-20MCG INHALER 4GM INH SCH ×4 (00:53→20:54)
[2023-03-08] MEDS: methylPREDNISolone 125MG 2ML VIAL IV SCH ×2 (01:03→09:23)
[2023-03-08] MEDS: ALPRAZolam 0.25 MG TAB PO PRN ×2 (04:35→16:34)
[2023-03-08] MEDS: DOXYCYCLINE HYCLATE 100 MG in D5W MINI-BAG PLUS 100 ML IV SCH (04:35)
[2023-03-08] MEDS: ADVAIR HFA 45/21MCG INHALER INH SCH ×2 (07:41→20:54)
[2023-03-08] MEDS: TIOTROPIUM INHALER/CAPSULE (SPIRIVA) INH SCH (07:41)
[2023-03-08] MEDS: NICOTINE 21MG/24HR 1 EA TRANSDERMAL TD SCH (09:00)
[2023-03-08] MEDS: DOCUSATE SODIUM 100MG CAPSULE PO SCH ×2 (09:00→20:49)
[2023-03-08] MEDS: METHADONE 10MG TAB PO SCH (09:22)
[2023-03-08] MEDS: EZETIMIBE 10MG TABLET (ZETIA) PO SCH (09:25)
[2023-03-08] MEDS: CitaloPRAM (CeleXA) 20 MG TAB PO SCH (09:25)
[2023-03-08] MEDS: MULTIVITAMINS/MINERALS THERAP 1 TAB PO SCH (09:25)
[2023-03-08] MEDS: NEBIVOLOL 5 MG TAB (BYSTOLIC) PO SCH (09:25)
[2023-03-08] MEDS: **hydrALAZINE HCL** 25 MG TAB PO SCH (09:26)
[2023-03-08] MEDS: RIVAROXABAN 10MG TAB (XARELTO) PO SCH (09:26)
[2023-03-08] MEDS: PREGABALIN 75 MG CAP(LYRICA) PO SCH ×2 (09:26→20:49)
[2023-03-08] MEDS ORDERED: **hydrALAZINE HCL** 25 MG TAB PO ONE (09:45)
[2023-03-08] MEDS ORDERED: MECLIZINE 25 MG TABLET PO ONE (09:50)
[2023-03-08] MEDS: predniSONE 20 MG TAB PO SCH (12:51)
[2023-03-08] MEDS ORDERED: DOXYCYCLINE HYCLATE 100MG TABLET PO ONE (16:00)
[2023-03-08] MEDS: CALCIUM CARBONATE 500 MG CHEW U/D PO PRN (17:12)
[2023-03-08] MEDS: **hydrALAZINE** 50 MG TAB PO SCH (20:51)
[2023-03-09 01:45] VITALS: BP 150/71; TEMP 97.9; O2SAT 93
[2023-03-09 01:49] VITALS: O2SAT 93
[2023-03-09] MEDS: COMBIVENT RESPIMAT 100-20MCG INHALER 4GM INH SCH ×3 (03:59→14:00)
[2023-03-09] MEDS: ALPRAZolam 0.25 MG TAB PO PRN (05:07)
[2023-03-09 05:15] VITALS: BP 162/80; TEMP 98.1; O2SAT 93
[2023-03-09] MEDS: TIOTROPIUM INHALER/CAPSULE (SPIRIVA) INH SCH (08:01)
[2023-03-09] MEDS: ADVAIR HFA 45/21MCG INHALER INH SCH (08:01)
[2023-03-09] MEDS ORDERED: predniSONE 20 MG TAB PO SCH (09:00)
[2023-03-09] MEDS: NICOTINE 21MG/24HR 1 EA TRANSDERMAL TD SCH (09:00)
[2023-03-09] MEDS: DOCUSATE SODIUM 100MG CAPSULE PO SCH (09:44)
[2023-03-09] MEDS: CitaloPRAM (CeleXA) 20 MG TAB PO SCH (09:45)
[2023-03-09] MEDS: EZETIMIBE 10MG TABLET (ZETIA) PO SCH (09:45)
[2023-03-09] MEDS: NEBIVOLOL 5 MG TAB (BYSTOLIC) PO SCH (09:45)
[2023-03-09] MEDS: PREGABALIN 75 MG CAP(LYRICA) PO SCH (09:45)
[2023-03-09] MEDS: MULTIVITAMINS/MINERALS THERAP 1 TAB PO SCH (09:45)
[2023-03-09] MEDS: predniSONE 20 MG TAB PO SCH (09:45)
[2023-03-09] MEDS: **hydrALAZINE** 50 MG TAB PO SCH (09:45)
[2023-03-09] MEDS: METHADONE 10MG TAB PO SCH (09:46)
[2023-03-09] MEDS: RIVAROXABAN 10MG TAB (XARELTO) PO SCH (09:50)
[2023-03-09] MEDS ORDERED: PRED20TA PO (11:23)
[2023-03-09] MEDS ORDERED: HYDR50TA PO (11:23)
[2023-03-09] MEDS ORDERED: AMLO1TAB25 PO (11:23)
[2023-03-09] MEDS ORDERED: BYST20TA2 PO (11:23)
[2023-03-09] MEDS ORDERED: VENTAER INH (11:23)
[2023-03-09] MEDS ORDERED: TREL1AER PO (11:23)
[2023-03-09] MEDS ORDERED: DALI1TAB2 PO (11:23)
[2023-03-09] MEDS ORDERED: IPRA0.00 INH (11:23)
[2023-03-09 11:47] VITALS: O2SAT 93
== END 2023-03-09 12:48 | disposition home or self-care (01) ==
LOC: EDBD 07:58 → M ED 07:58 → M ED INP 07:59 → ENRESERV 21:43 → M MSPAV 23:13
PROVIDERS: ADMIT Student in an Organized Health Care Education/Training Program; ATTEND Internal Medicine
DX: J44.1 Chronic obstructive pulmonary disease with (acute) exacerbation (principal); J96.20 Acute and chronic respiratory failure, unspecified whether with hypoxia or hypercapnia; R00.0 Tachycardia, unspecified; I10 Essential (primary) hypertension; F41.9 Anxiety disorder, unspecified; Z79.891 Long term (current) use of opiate analgesic; Z87.891 Personal history of nicotine dependence
CPT/HCPCS: 36415; 71045; 71275; 80048; 80076; 82550; 82553; 82803; 83605; 83735; 83880; 84145; 84443; 84484; 85025; 85027; 85610; 85730; 87040; 87486; 87581; 87633; 87798; 93005; 93041; 94640; 94760; 96365; 96366; 96375; 96376; 97110; 97161; 99285; G0378; J2920; J2930; J7512; Q9967

== ENCOUNTER → 2023-03-29 | Outpatient (REF) | payer MEDICARE ==
[~2023-03-29] MED LIST changes: +BYST20TA2 PO; +CITA20TA6 PO; +DALI1TAB2 PO; +DOXY100T PO; +HYDR50TA PO; +LYRI150C PO; +PRED10PA PO; +TREL1AER PO; +VENTAER INH; +VITMTA PO
== END ==
LOC: M SFHCPLAZ 12:11
PROVIDERS: ATTEND Student in an Organized Health Care Education/Training Program
DX: Z76.89 Persons encountering health services in other specified circumstances (principal)

== ENCOUNTER → 2024-01-18 | Outpatient (REF) | payer OTHER, MEDICARE, MEDICAID ==
[~2024-01-18] MED LIST changes: +BYST1TAB PO; -BYST20TA2 PO; -HYDR-3910 PO; +HYDR25TA87 PO; -HYDR50TA PO; +HYDR50TA47 PO; -MIRA1POW3 PO; +MIRA33506 PO
== END ==
LOC: M SFHCPLAZ 14:58
PROVIDERS: ATTEND Student in an Organized Health Care Education/Training Program
DX: L68.0 Hirsutism (principal); E55.9 Vitamin D deficiency, unspecified; I10 Essential (primary) hypertension

== ENCOUNTER 2024-02-22 15:58 | Inpatient (IN) | payer OTHER, MEDICARE, MEDICAID ==
[~2024-02-22] VITALS: Ht 157.5 cm; Wt 60.2 kg
[2024-02-22 16:49] LABS: VENOUS BASE EXCESS -2.1 (-2.0-2.0); VENOUS HCO3 21.4 MMOL/L (23.0-27.0); VENOUS O2 SATURATION 87.4 % (60.0-80.0); VENOUS PH 7.416 UNITS (7.330-7.430); VENOUS STANDARD HCO3 22.4 MMOL/L; VENOUS TOTAL CO2 22.4 MMOL/L (24.0-28.0)
[2024-02-22 16:58] LABS: BASO % 0.2 % (0.0-1.0); HEMATOCRIT 51.7 % (36.0-47.0); HEMOGLOBIN 17.8 g/dl (12.0-15.5); LYMPH # 0.9 10^3/uL (1.5-5.0); LYMPH % 5.5 % (24.0-44.0); MEAN CORPUSCULAR HEMOGLOBIN 28.9 pg (27.0-33.0); MEAN CORPUSCULAR HGB CONC 34.4 g/dl (32.0-36.5); MEAN CORPUSCULAR VOLUME 83.9 fl (80.0-96.0); MONO # 0.5 10^3/uL (0.0-0.8); MONO % 2.7 % (2.0-8.0); NEUTROPHILS # 15.5 10^3/uL (1.5-8.5); PLATELET COUNT, AUTOMATED 334 10^3/uL (150-450); RED BLOOD COUNT 6.16 10^6/uL (4.00-5.40); WHITE BLOOD COUNT 17.1 10^3/uL (4.0-10.0)
[2024-02-22 17:23] LABS: ALKALINE PHOSPHATASE 101 U/L (46-116); ALT/SGPT 55 U/L (7.0-40); AST/SGOT 60 U/L (<34); BILIRUBIN,DIRECT 0.3 MG/DL (<0.4); BILIRUBIN,TOTAL 0.8 MG/DL (0.3-1.2); BLOOD UREA NITROGEN 20 MG/DL (9-23); CALCIUM LEVEL 10.1 MG/DL (8.3-10.6); CARBON DIOXIDE LEVEL 24 MMOL/L (20-31); CHLORIDE LEVEL 108 MMOL/L (98-107); CK-MB VALUE MASS 5.1 NG/ML (<3.6); CREATININE FOR GFR 0.77 MG/DL (0.55-1.30); GLOMERULAR FILTRATION RATE > 60.0 (>45); GLUCOSE, FASTING 130 MG/DL (74-106); POTASSIUM SERUM 4.6 MMOL/L (3.5-5.1); SODIUM LEVEL 141 MMOL/L (136-145); TOTAL PROTEIN 7.5 G/DL (5.7-8.2)
[2024-02-22 17:25] LABS: THYROID STIMULATING HORMONE 0.757 uIU/ML (0.55-4.78); THYROXINE (T4) 10.7 UG/DL (4.5-10.9)
[2024-02-22 17:27] LABS: CPK CREATINE PHOSPHOKINASE 142 U/L (34-145); MB/CK RELATIVE INDEX 3.59 (< OR =4)
[2024-02-22] MEDS: methylPREDNISolone 125MG 2ML VIAL IV ONE (17:43)
[2024-02-22] MEDS: ONDANSETRON 4MG 2ML VIAL IV ONE (17:43)
[2024-02-22] MEDS: MORPHINE 4 MG/ML 1ML VIAL IV ONE (17:44)
[2024-02-22] MEDS: IPRATROPIUM 0.5MG/ALBUTEROL 2.5MG INH SOL UD 3ML (DUONEB) NEB PRN (18:11)
[2024-02-22] MEDS: NS 1,000 ML IV ONE (18:20)
[2024-02-22] MEDS ORDERED: ISOVUE-370 76% 100ML VIAL As Ordered ONE (18:44)
[2024-02-22 18:49] LABS: CK-MB VALUE MASS 5.3 NG/ML (<3.6); MB/CK RELATIVE INDEX 3.63 (< OR =4)
[2024-02-22] MEDS: ASPIRIN 81MG CHEW TABLET PO ONE (19:05)
[2024-02-22] MEDS ORDERED: NITROGLYCERIN 0.4MG SUBL TABLET SL PRN ×2 (19:10→23:40)
[2024-02-22] MEDS: PIPERACILLIN/TAZOBACTAM SOD 4.5 GM in D5W MINI-BAG PLUS 50 ML IV ONE (22:05)
[2024-02-22] MEDS ORDERED: FLUT1BLS8 INH (22:23)
[2024-02-22] MEDS ORDERED: INCR1INH INH (22:23)
[2024-02-22] MEDS ORDERED: HYDR50TA46 PO (22:23)
[2024-02-22] MEDS ORDERED: AZIT500T5 PO (22:24)
[2024-02-22] MEDS ORDERED: HOME MED LIST COMPLETE! XX SCH (23:10)
[2024-02-22] MEDS ORDERED: HEPARIN SOD (PORCINE) 5000UNITS/ML 1ML VIAL/SYRINGE IV PRN (23:40)
[2024-02-22] MEDS ORDERED: NICOTINE 21MG/24HR 1 EA TRANSDERMAL TD PRN (23:40)
[2024-02-22] MEDS ORDERED: MOM 30ML SUSPENSION UDC PO PRN (23:40)
[2024-02-22] MEDS ORDERED: MAALOX 30 ML SUSP *UDC PO PRN (23:40)
[2024-02-23] MEDS: LEVALBUTEROL 1.25MG 0.5ML CONCENTRATE NEB INH PRN (00:34)
[2024-02-23] MEDS: IPRATROPIUM 0.02% SOLN 0.5MG 2.5ML NEB INH PRN (00:34)
[2024-02-23] MEDS: CLOPIDOGREL 75 MG TAB PO SCH (00:36)
[2024-02-23] MEDS: PANTOPRAZOLE 40MG VIAL IV SCH (00:36)
[2024-02-23] MEDS: HEPARIN DRIP 25,000 UNITS in IV 1 EA IV SCH (01:14)
[2024-02-23] MEDS: HEPARIN SOD (PORCINE) 5000UNITS/ML 1ML VIAL/SYRINGE IV ONE (01:15)
[2024-02-23 01:17] LABS: HEMATOCRIT 45.2 % (36.0-47.0); MEAN CORPUSCULAR HEMOGLOBIN 29.2 pg (27.0-33.0); MEAN CORPUSCULAR HGB CONC 34.3 g/dl (32.0-36.5); MEAN CORPUSCULAR VOLUME 85.3 fl (80.0-96.0); PLATELET COUNT, AUTOMATED 257 10^3/uL (150-450); WHITE BLOOD COUNT 11.3 10^3/uL (4.0-10.0)
[2024-02-23 01:30] LABS: INR 1.1; PROTHROMBIN TIME 13.9 SECONDS (12.5-14.5)
[2024-02-23 01:31] LABS: HEMOGLOBIN 15.5 g/dl (12.0-15.5)
[2024-02-23 01:41] LABS: MAGNESIUM LEVEL 1.8 MG/DL (1.8-2.4)
[2024-02-23] MEDS: methylPREDNISolone 125MG 2ML VIAL IV SCH (02:22)
[2024-02-23 03:12] LABS: PROCALCITONIN 0.11 ng/ml
[2024-02-23] MEDS: ALPRAZolam 0.25 MG TAB PO PRN (06:04)
[2024-02-23 07:41] LABS: HEMATOCRIT 45.8 % (36.0-47.0); HEMOGLOBIN 15.5 g/dl (12.0-15.5); MEAN CORPUSCULAR HEMOGLOBIN 28.8 pg (27.0-33.0); MEAN CORPUSCULAR HGB CONC 33.8 g/dl (32.0-36.5); MEAN CORPUSCULAR VOLUME 85.1 fl (80.0-96.0); PLATELET COUNT, AUTOMATED 257 10^3/uL (150-450); RED BLOOD COUNT 5.38 10^6/uL (4.00-5.40); WHITE BLOOD COUNT 14.2 10^3/uL (4.0-10.0)
[2024-02-23] MEDS ORDERED: METH10SO PO (07:56)
[2024-02-23] MEDS: **hydrALAZINE** 50 MG TAB PO SCH (08:54)
[2024-02-23] MEDS: CitaloPRAM (CeleXA) 20 MG TAB PO SCH (08:54)
[2024-02-23] MEDS: ASPIRIN 81MG CHEW TABLET PO SCH (08:55)
[2024-02-23] MEDS: ATORVASTATIN 20 MG TAB PO SCH (08:55)
[2024-02-23] MEDS: DOCUSATE SODIUM 100MG CAPSULE PO SCH (08:55)
[2024-02-23] MEDS: PREGABALIN 75 MG CAP(LYRICA) PO SCH (08:55)
[2024-02-23] MEDS ORDERED: [UNRECOGNIZED DRUG - OTHER] INH SCH (09:00)
[2024-02-23] MEDS ORDERED: MDI INH SCH (09:00)
[2024-02-23] MEDS: ACETAMINOPHEN TAB 650MG DOSE (2X325MG) PO PRN (09:05)
[2024-02-23 09:14] LABS: ALBUMIN 3.4 G/DL (3.2-5.2); ALKALINE PHOSPHATASE 79 U/L (46-116); ALT/SGPT 46 U/L (7.0-40); AST/SGOT 50 U/L (<34); BILIRUBIN,TOTAL 0.5 MG/DL (0.3-1.2); BLOOD UREA NITROGEN 19 MG/DL (9-23); CALCIUM LEVEL 9.4 MG/DL (8.3-10.6); CARBON DIOXIDE LEVEL 26 MMOL/L (20-31); CHLORIDE LEVEL 109 MMOL/L (98-107); CHOLESTEROL LEVEL 165 MG/DL (<200); CHOLESTEROL RISK RATIO 3.22 (<5); CREATININE FOR GFR 0.85 MG/DL (0.55-1.30); GLOMERULAR FILTRATION RATE > 60.0 (>45); GLUCOSE, FASTING 115 MG/DL (74-106); HDL CHOLESTEROL 51.1 MG/DL (>40); LDL CHOLESTEROL 98.9 MG/DL (<100); NON-HDL-C 113.9 MG/DL; POTASSIUM SERUM 3.7 MMOL/L (3.5-5.1); SODIUM LEVEL 141 MMOL/L (136-145); TOTAL PROTEIN 6.6 G/DL (5.7-8.2); TRIGLYCERIDES LEVEL 75 MG/DL (<150)
[2024-02-23] MEDS: EZETIMIBE 10MG TABLET (ZETIA) PO SCH (09:52)
[2024-02-23] MEDS: NEBIVOLOL 5 MG TAB (BYSTOLIC) PO SCH (09:54)
[2024-02-23] MEDS: TIOTROPIUM INHALER/CAPSULE (SPIRIVA) INH SCH (11:45)
[2024-02-23] MEDS: ADVAIR HFA 230/21MCG INHALER INH SCH (11:46)
[2024-02-23] MEDS: METOPROLOL SUCC (TopROL XL) 50MG **XL** TAB PO SCH (13:06)
[2024-02-23] MEDS: PIPERACILLIN/TAZOBACTAM SOD 4.5 GM in D5W MINI-BAG PLUS 50 ML IV SCH (13:08)
[2024-02-23] MEDS ORDERED: PILL CUTTER 1 EACH XX ONE (14:53)
[2024-02-23] MEDS: METHADONE 10MG TAB PO ONE (14:55)
[2024-02-23 23:47] VITALS: BP 143/67; TEMP 97.9; O2SAT 91
[2024-02-24] MEDS: ALPRAZolam 0.25 MG TAB PO ONE (03:02)
[2024-02-24 04:40] VITALS: BP 145/69; TEMP 97.2; O2SAT 91
[2024-02-24 06:25] LABS: HEMATOCRIT 42.8 % (36.0-47.0); HEMOGLOBIN 14.3 g/dl (12.0-15.5); MEAN CORPUSCULAR HEMOGLOBIN 29.1 pg (27.0-33.0); MEAN CORPUSCULAR HGB CONC 33.4 g/dl (32.0-36.5); PLATELET COUNT, AUTOMATED 244 10^3/uL (150-450); RED BLOOD COUNT 4.92 10^6/uL (4.00-5.40)
[2024-02-24 06:50] LABS: ALBUMIN 3.1 G/DL (3.2-5.2); ALKALINE PHOSPHATASE 68 U/L (46-116); ALT/SGPT 89 U/L (7.0-40); AST/SGOT 78 U/L (<34); BILIRUBIN,TOTAL 0.5 MG/DL (0.3-1.2); BLOOD UREA NITROGEN 24 MG/DL (9-23); CARBON DIOXIDE LEVEL 29 MMOL/L (20-31); CHLORIDE LEVEL 109 MMOL/L (98-107); CREATININE FOR GFR 0.95 MG/DL (0.55-1.30); GLOMERULAR FILTRATION RATE > 60.0 (>45); GLUCOSE, FASTING 80 MG/DL (74-106); POTASSIUM SERUM 3.4 MMOL/L (3.5-5.1); SODIUM LEVEL 140 MMOL/L (136-145); TOTAL PROTEIN 5.6 G/DL (5.7-8.2)
[2024-02-24 08:00] VITALS: BP 157/71; TEMP 97.9; O2SAT 95
[2024-02-24] MEDS: methylPREDNISolone 40MG 1ML VIAL IV SCH (08:51)
[2024-02-24] MEDS: METHADONE 10MG TAB PO SCH (08:52)
[2024-02-24 12:00] VITALS: BP 171/72; TEMP 97.6; O2SAT 92
[2024-02-24] MEDS: POTASSIUM CHLORIDE 10% LIQ 20MEQ/15ML UDC PO ONE (12:02)
[2024-02-24 16:13] VITALS: BP 170/90; TEMP 97.5; O2SAT 91
[2024-02-24] MEDS: **hydrALAZINE** 50 MG TAB PO ONE (17:09)
[2024-02-24] MEDS: ENOXAPARIN 40MG/0.4ML SYRINGE (J1650 PER 10MG) SC SCH (17:10)
[2024-02-24] MEDS: ROFLUMILAST 500 MCG PO SCH (19:02)
[2024-02-24 19:50] VITALS: BP 159/73; TEMP 97.4; O2SAT 94
[2024-02-24] MEDS: ALPRAZolam 0.5 MG TAB PO PRN (20:06)
[2024-02-25] VITALS (7 sets, daily range): BP systolic 144–165; BP diastolic 50–85; TEMP 96.9–97.8; O2SAT 92–97
[2024-02-25 06:17] LABS: HEMATOCRIT 46.1 % (36.0-47.0); HEMOGLOBIN 15.3 g/dl (12.0-15.5); MEAN CORPUSCULAR HEMOGLOBIN 28.6 pg (27.0-33.0); MEAN CORPUSCULAR HGB CONC 33.2 g/dl (32.0-36.5); MEAN CORPUSCULAR VOLUME 86.2 fl (80.0-96.0); PLATELET COUNT, AUTOMATED 242 10^3/uL (150-450); RED BLOOD COUNT 5.35 10^6/uL (4.00-5.40); WHITE BLOOD COUNT 14.4 10^3/uL (4.0-10.0)
[2024-02-25 06:38] LABS: ALBUMIN 3.4 G/DL (3.2-5.2); ALKALINE PHOSPHATASE 69 U/L (46-116); ALT/SGPT 83 U/L (7.0-40); AST/SGOT 53 U/L (<34); BILIRUBIN,TOTAL 0.5 MG/DL (0.3-1.2); BLOOD UREA NITROGEN 22 MG/DL (9-23); CALCIUM LEVEL 9.2 MG/DL (8.3-10.6); CARBON DIOXIDE LEVEL 32 MMOL/L (20-31); CHLORIDE LEVEL 106 MMOL/L (98-107); CREATININE FOR GFR 0.99 MG/DL (0.55-1.30); GLOMERULAR FILTRATION RATE > 60.0 (>45); GLUCOSE, FASTING 85 MG/DL (74-106); POTASSIUM SERUM 3.6 MMOL/L (3.5-5.1); SODIUM LEVEL 141 MMOL/L (136-145); TOTAL PROTEIN 6.1 G/DL (5.7-8.2)
[2024-02-25] MEDS: PANTOPRAZOLE 40MG TAB (PROTONIX) PO SCH (08:39)
[2024-02-25] MEDS ORDERED: PROT1TAB2 PO (10:37)
[2024-02-25] MEDS ORDERED: CLOP75TA99 PO (10:37)
[2024-02-25] MEDS ORDERED: PRED50TA PO (10:37)
[2024-02-25] MEDS ORDERED: ASPI81CH33 PO (10:37)
[2024-02-25] MEDS ORDERED: ROSU20TA61 PO (10:37)
[2024-02-25] MEDS ORDERED: ALBU8.5H INH (12:10)
[2024-02-25] MEDS ORDERED: PRED20TA PO (12:10)
[2024-02-26] MEDS ORDERED: PANT40TA29 PO (15:31)
[2024-02-26] MEDS ORDERED: CLOP75TA2 PO (15:31)
[2024-02-26] MEDS ORDERED: ROSU20TA61 PO (15:31)
[2024-02-26] MEDS ORDERED: VENTAER INH (15:31)
[2024-02-26] MEDS ORDERED: ASPI81CH33 PO (15:31)
[2024-02-26] MEDS ORDERED: PRED50TA PO (15:38)
== END 2024-02-25 15:49 | disposition home health service (06) | DRG 190 ==
LOC: EDBD 15:58 → M ED 15:58 → M ED INP 23:00 → M PCU 02-23 23:58
PROVIDERS: ADMIT Internal Medicine; ATTEND Internal Medicine
DX: J44.1 Chronic obstructive pulmonary disease with (acute) exacerbation (principal); I21.A1 Myocardial infarction type 2; E87.20 Acidosis, unspecified; I10 Essential (primary) hypertension; K81.9 Cholecystitis, unspecified; F17.200 Nicotine dependence, unspecified, uncomplicated; Z79.899 Other long term (current) drug therapy; Z79.82 Long term (current) use of aspirin; G89.29 Other chronic pain

== ENCOUNTER 2024-02-26 14:33 | Inpatient (IN) | payer OTHER, MEDICARE, MEDICAID ==
[~2024-02-26] VITALS: Ht 157.5 cm; Wt 59.6 kg
[~2024-02-26 14:33] MED LIST changes: +ASPI81CH33 PO; +AZIT500T5 PO; +CLOP75TA99 PO; +FLUT1BLS8 INH; +HYDR50TA46 PO; +INCR1INH INH; +METH10SO PO; +PRED50TA PO; +PROT1TAB2 PO; +ROSU20TA86 PO
[2024-02-26] MEDS ORDERED: methylPREDNISolone 125MG 2ML VIAL IV ONE (14:55)
[2024-02-26] MEDS: IPRATROPIUM 0.5MG/ALBUTEROL 2.5MG INH SOL UD 3ML (DUONEB) NEB PRN (15:02)
[2024-02-26 15:16] LABS: VENOUS BASE EXCESS 2.5 (-2.0-2.0); VENOUS O2 SATURATION 98.1 % (60.0-80.0); VENOUS PARTIAL PRESSURE CO2 33.3 mmHg (38.0-50.0); VENOUS PARTIAL PRESSURE O2 107.3 mmHg (30.0-50.0); VENOUS PH 7.494 UNITS (7.330-7.430); VENOUS STANDARD HCO3 26.7 MMOL/L; VENOUS TOTAL CO2 26.1 MMOL/L (24.0-28.0)
[2024-02-26 15:24] LABS: BASO % 0.1 % (0.0-1.0); HEMATOCRIT 49.7 % (36.0-47.0); HEMOGLOBIN 17.4 g/dl (12.0-15.5); LYMPH # 0.6 10^3/uL (1.5-5.0); LYMPH % 4.5 % (24.0-44.0); MEAN CORPUSCULAR HEMOGLOBIN 29.1 pg (27.0-33.0); MEAN CORPUSCULAR VOLUME 83.1 fl (80.0-96.0); MONO # 0.2 10^3/uL (0.0-0.8); MONO % 1.5 % (2.0-8.0); NEUTROPHILS % 92.8 % (36.0-66.0); PLATELET COUNT, AUTOMATED 321 10^3/uL (150-450); RED BLOOD COUNT 5.98 10^6/uL (4.00-5.40)
[2024-02-26] MEDS ORDERED: VENTAER INH (15:31)
[2024-02-26] MEDS ORDERED: CLOP75TA2 PO (15:31)
[2024-02-26] MEDS ORDERED: PANT40TA29 PO (15:31)
[2024-02-26] MEDS ORDERED: ASPI81CH33 PO (15:31)
[2024-02-26] MEDS ORDERED: ROSU20TA86 PO (15:31)
[2024-02-26] MEDS ORDERED: PRED50TA PO (15:38)
[2024-02-26 15:53] LABS: ALBUMIN 3.9 G/DL (3.2-5.2); ALKALINE PHOSPHATASE 84 U/L (46-116); ALT/SGPT 78 U/L (7.0-40); AST/SGOT 49 U/L (<34); BILIRUBIN,DIRECT 0.3 MG/DL (<0.4); BILIRUBIN,TOTAL 0.7 MG/DL (0.3-1.2); BLOOD UREA NITROGEN 16 MG/DL (9-23); CALCIUM LEVEL 9.6 MG/DL (8.3-10.6); CARBON DIOXIDE LEVEL 27 MMOL/L (20-31); CHLORIDE LEVEL 106 MMOL/L (98-107); CREATININE FOR GFR 0.69 MG/DL (0.55-1.30); GLOMERULAR FILTRATION RATE > 60.0 (>45); GLUCOSE, FASTING 135 MG/DL (74-106); POTASSIUM SERUM 3.1 MMOL/L (3.5-5.1); SODIUM LEVEL 142 MMOL/L (136-145); TOTAL PROTEIN 7.1 G/DL (5.7-8.2)
[2024-02-26] MEDS ORDERED: ISOVUE-370 76% 100ML VIAL As Ordered ONE (16:05)
[2024-02-26] MEDS: IPRATROPIUM 0.5MG/ALBUTEROL 2.5MG INH SOL UD 3ML (DUONEB) NEB ONE (16:50)
[2024-02-26] MEDS: POTASSIUM CHLORIDE 10MEQ SR TABLET PO ONE (17:14)
[2024-02-26] MEDS: ALPRAZolam 0.25 MG TAB PO ONE (17:14)
[2024-02-26] MEDS ORDERED: HOME MED LIST COMPLETE! XX SCH (18:25)
[2024-02-26 19:50] LABS: PROCALCITONIN 0.08 ng/ml
[2024-02-26] MEDS: methylPREDNISolone 125MG 2ML VIAL IV ONE (20:16)
[2024-02-26] MEDS ORDERED: POTASSIUM CHLORIDE 10MEQ SR TABLET PO ONE (20:30)
[2024-02-26] MEDS: ALBUTEROL SULFATE 2.5MG/0.5ML INH NEB SOLN NEB PRN (21:17)
[2024-02-26] MEDS: AZITHROMYCIN INJ 500 MG, VIAL MATE ADAPTER 1 EACH in NS 250 ML IV SCH (21:25)
[2024-02-26] MEDS: NS 1,000 ML IV ONE (21:25)
[2024-02-26 22:06] VITALS: BP 154/80; TEMP 98.5; O2SAT 96
[2024-02-26] MEDS: GABAPENTIN 300 MG CAP PO ONE (22:42)
[2024-02-26] MEDS: **hydrALAZINE** 50 MG TAB PO ONE (22:42)
[2024-02-26] MEDS: IPRATROPIUM 0.02% SOLN 0.5MG 2.5ML NEB NEB SCH (23:49)
[2024-02-26] MEDS: LEVALBUTEROL 1.25MG 0.5ML CONCENTRATE NEB NEB SCH (23:49)
[2024-02-26] MEDS ORDERED: ALBUTEROL 90 MCG/ACT 8GM HFA INHALER INH PRN (23:55)
[2024-02-27] MEDS ORDERED: LEVALBUTEROL HFA 45MCG/ACT 15GM INHALER INH SCH
[2024-02-27] MEDS ORDERED: IPRATROPIUM HFA INHALER 12.9 GRAMS (ATROVENT HFA) INH SCH
[2024-02-27 00:11] VITALS: BP 162/76; TEMP 98.2; O2SAT 95
[2024-02-27] MEDS: NS 500 ML IV ONE (00:31)
[2024-02-27] MEDS: SODIUM CHLORIDE 0.9% 1000ML IV ONE (00:31)
[2024-02-27] MEDS: BUDESONIDE 0.5 MG/2 ML INHALATION SUSPENSION NEB SCH (03:53)
[2024-02-27] MEDS: methylPREDNISolone 40MG 1ML VIAL IV SCH ×2 (04:07→08:58)
[2024-02-27 04:51] VITALS: BP 156/72; TEMP 97.3; O2SAT 94
[2024-02-27] MEDS: ALPRAZolam 0.25 MG TAB PO ONE (04:52)
[2024-02-27] MEDS: **hydrALAZINE** 50 MG TAB PO SCH (06:00)
[2024-02-27 07:00] VITALS: O2SAT 94
[2024-02-27 07:41] VITALS: BP 161/73; TEMP 97.8; O2SAT 95
[2024-02-27] MEDS ORDERED: BUDESONIDE 0.5 MG/2 ML INHALATION SUSPENSION NEB SCH (08:00)
[2024-02-27] MEDS: NEBIVOLOL 5 MG TAB (BYSTOLIC) PO SCH (08:28)
[2024-02-27] MEDS: EZETIMIBE 10MG TABLET (ZETIA) PO SCH (08:28)
[2024-02-27] MEDS: ASPIRIN 81MG CHEW TABLET PO SCH (08:28)
[2024-02-27] MEDS: PANTOPRAZOLE 40MG TAB (PROTONIX) PO SCH (08:28)
[2024-02-27] MEDS: CLOPIDOGREL 75 MG TAB PO SCH (08:28)
[2024-02-27] MEDS: PREGABALIN 75 MG CAP(LYRICA) PO SCH (08:29)
[2024-02-27] MEDS: ENOXAPARIN 40MG/0.4ML SYRINGE (J1650 PER 10MG) SC SCH (08:29)
[2024-02-27] MEDS: CitaloPRAM (CeleXA) 20 MG TAB PO SCH (08:29)
[2024-02-27] MEDS: METHADONE 10MG TAB PO SCH (08:59)
[2024-02-27] MEDS: METHADONE 5MG TAB PO SCH (08:59)
[2024-02-27] MEDS ORDERED: predniSONE 50 MG TAB PO SCH (09:00)
[2024-02-27] MEDS ORDERED: **hydrALAZINE** 50 MG TAB PO SCH (09:00)
[2024-02-27] MEDS: IPRATROPIUM 0.02% SOLN 0.5MG 2.5ML NEB INH PRN (11:58)
[2024-02-27] MEDS: LEVALBUTEROL 1.25MG 0.5ML CONCENTRATE NEB INH PRN (11:59)
[2024-02-27] MEDS: ROFLUMILAST 500 MCG TABLET (PATIENT'S OWN MED) PO SCH (12:49)
[2024-02-27] MEDS: IPRATROPIUM 0.02% SOLN 0.5MG 2.5ML NEB INH SCH (14:57)
[2024-02-27] MEDS: LEVALBUTEROL 1.25MG 0.5ML CONCENTRATE NEB INH SCH (14:57)
[2024-02-27 15:51] VITALS: BP 121/57; TEMP 98.4; O2SAT 93
[2024-02-27] MEDS: ALPRAZolam 0.25 MG TAB PO PRN (17:38)
[2024-02-27 19:23] VITALS: BP 124/57; TEMP 97.6; O2SAT 93
[2024-02-27] MEDS: ROSUVASTATIN 10 MG TAB (CRESTOR) PO SCH (20:31)
[2024-02-27] MEDS: AZITHROMYCIN 250MG TABLET PO SCH (20:31)
[2024-02-28 04:06] VITALS: BP 155/72; TEMP 97.1; O2SAT 94
[2024-02-28 07:33] VITALS: BP 140/63; TEMP 97; O2SAT 92
[2024-02-28 16:00] VITALS: BP 139/71; TEMP 98; O2SAT 92
[2024-02-28] MEDS: **hydrALAZINE** 50 MG TAB PO SCH (16:00)
[2024-02-28 19:32] VITALS: BP 152/70; TEMP 97.4; O2SAT 94
[2024-02-29 03:00] VITALS: BP 154/73; TEMP 97.5; O2SAT 93
[2024-02-29 03:50] VITALS: BP 144/74; TEMP 97.7; O2SAT 94
[2024-02-29 12:00] VITALS: BP 153/74; TEMP 98.8; O2SAT 93
[2024-02-29] MEDS: **hydrALAZINE HCL** 25 MG TAB PO SCH (15:53)
[2024-02-29 21:17] VITALS: BP 144/73; TEMP 97.9; O2SAT 94
[2024-02-29] MEDS: methylPREDNISolone 40MG 1ML VIAL IV SCH (21:22)
[2024-03-01 04:44] VITALS: BP 152/76; TEMP 97.9; O2SAT 92
[2024-03-01] MEDS: predniSONE 20 MG TAB PO SCH (10:33)
[2024-03-01 12:00] VITALS: BP 152/76; TEMP 98.1; O2SAT 93
[2024-03-01 14:55] LABS: BASO # 0.1 10^3/uL (0.0-0.2); BASO % 0.3 % (0.0-1.0); HEMATOCRIT 45.8 % (36.0-47.0); HEMOGLOBIN 15.3 g/dl (12.0-15.5); LYMPH # 0.9 10^3/uL (1.5-5.0); LYMPH % 5.1 % (24.0-44.0); MEAN CORPUSCULAR HEMOGLOBIN 28.5 pg (27.0-33.0); MEAN CORPUSCULAR HGB CONC 33.4 g/dl (32.0-36.5); MEAN CORPUSCULAR VOLUME 85.4 fl (80.0-96.0); MONO # 0.5 10^3/uL (0.0-0.8); MONO % 2.9 % (2.0-8.0); NEUTROPHILS # 15.1 10^3/uL (1.5-8.5); NEUTROPHILS % 88.6 % (36.0-66.0); PLATELET COUNT, AUTOMATED 294 10^3/uL (150-450); RED BLOOD COUNT 5.36 10^6/uL (4.00-5.40)
[2024-03-01 15:13] LABS: BLOOD UREA NITROGEN 15 MG/DL (9-23); CALCIUM LEVEL 8.9 MG/DL (8.3-10.6); CARBON DIOXIDE LEVEL 30 MMOL/L (20-31); CHLORIDE LEVEL 104 MMOL/L (98-107); CREATININE FOR GFR 0.66 MG/DL (0.55-1.30); GLOMERULAR FILTRATION RATE > 60.0 (>45); GLUCOSE, FASTING 132 MG/DL (74-106); POTASSIUM SERUM 3.6 MMOL/L (3.5-5.1); SODIUM LEVEL 139 MMOL/L (136-145)
[2024-03-01 15:24] LABS: PROCALCITONIN 0.04 ng/ml
[2024-03-01 20:26] VITALS: BP 150/79; TEMP 98.2; O2SAT 95
[2024-03-02 03:52] VITALS: BP 153/80; TEMP 97.9; O2SAT 93
[2024-03-02 09:18] VITALS: BP 125/58
[2024-03-02 11:44] VITALS: BP 128/56; TEMP 98.1; O2SAT 93
[2024-03-02] MEDS ORDERED: HYDR25TA88 PO (12:13)
[2024-03-02] MEDS ORDERED: HYDR50TA46 PO (12:13)
[2024-03-02] MEDS ORDERED: SELF1KIT MC (12:13)
[2024-03-02] MEDS ORDERED: PRED20TA PO (12:14)
[2024-03-02] MEDS ORDERED: PRED10TA2 PO (12:14)
[2024-03-02] MEDS ORDERED: ALBU8.5H INH (12:14)
[2024-03-02] MEDS ORDERED: IPRA0.00 INH (12:14)
[2024-03-02] MEDS ORDERED: PRED50TA PO (12:17)
[2024-03-02] MEDS: FLUBLOK(EGGFREE) TRIVAL(24-25) VACCINE PF 0.5ML SYRINGE 18YRS & OLDER IM.IMMUN ONE (13:09)
[2024-03-02] MEDS ORDERED: ARTIFICIAL TEARS DROPS 15ML BTL (VISINE DRY RELIEF) OU SCH (16:00)
== END 2024-03-02 15:33 | disposition home health service (06) | DRG 191 ==
LOC: M ED 14:33 → EDBD 14:33 → M ED INP 20:27 → M PCU 21:49 → M MS5PR 02-29 03:47
PROVIDERS: ADMIT Internal Medicine; ATTEND General Practice
DX: J44.1 Chronic obstructive pulmonary disease with (acute) exacerbation (principal); E87.20 Acidosis, unspecified; I25.2 Old myocardial infarction; F17.200 Nicotine dependence, unspecified, uncomplicated; F32.A Depression, unspecified; I16.0 Hypertensive urgency; E55.9 Vitamin D deficiency, unspecified; G89.29 Other chronic pain; E87.6 Hypokalemia; I10 Essential (primary) hypertension; Z79.899 Other long term (current) drug therapy; Z79.82 Long term (current) use of aspirin; Z79.52 Long term (current) use of systemic steroids; K57.90 Diverticulosis of intestine, part unspecified, without perforation or abscess without bleeding; K80.20 Calculus of gallbladder without cholecystitis without obstruction

== ENCOUNTER → 2024-04-07 | Outpatient (CLI) | payer MEDICARE, MEDICAID ==
[~2024-04-07] MED LIST changes: +CLOP75TA2 PO; +HYDR25TA88 PO; +PANT40TA29 PO; +SELF1KIT MC
== END ==
LOC: M RAD 12:43
PROVIDERS: ATTEND Student in an Organized Health Care Education/Training Program
DX: J44.9 Chronic obstructive pulmonary disease, unspecified (principal)

== ENCOUNTER → 2025-03-20 | Outpatient (CLI) | payer MEDICARE, MEDICAID ==
[~2025-03-20] MED LIST changes: -EZET10TA21 PO; +EZET10TA57 PO; -PRED50TA PO; +PRED50TA57 PO
== END ==
LOC: M CARPUL 09:17
PROVIDERS: ATTEND Student in an Organized Health Care Education/Training Program
DX: I50.32 Chronic diastolic (congestive) heart failure (principal)